=== PATIENT | male | born 1960 | race Caucasian/White ===

== ENCOUNTER 2022-01-17 07:50 | Day surgery (SDC) | payer OTHER ==
[2022-01-15 10:25] VITALS: BMI 50.9
--- NOTE | 2022-01-17 07:39 | P.GSHP ---
History of Present Illness H&P Date: 01/17/22 CHIEF COMPLAINT: Colon screen HISTORY OF PRESENT ILLNESS: The patient is a 61-year-old male who presents for colon screen. Lower endoscopy was offered for further evaluation and management. PAST MEDICAL HISTORY: Please see list. PAST SURGICAL HISTORY: Please see list. MEDICATIONS: Please see list. ALLERGIES: Please see list. SOCIAL HISTORY: No illicit drug use FAMILY HISTORY: No reports of Crohn disease or ulcerative colitis. REVIEW OF ORGAN SYSTEMS: CONSTITUTIONAL: No reports of fevers or chills. PHYSICAL EXAM: VITAL SIGNS: Stable GENERAL: Well-developed pleasant in no acute distress. HEENT: No scleral icterus. Extraocular movements grossly intact. Moist buccal mucosa. NECK: Supple without lymphadenopathy. CHEST: Unlabored respirations. Equal bilateral excursions. CARDIOVASCULAR: Regular rate and rhythm. Distal 2+ pulses. ABDOMEN: Soft, nontender, nondistended. MUSCULOSKELETAL: No clubbing, cyanosis, or edema. ASSESSMENT: 1. Colon screen. PLAN: 1. Recommend proceeding with a lower endoscopy Past Medical History Past Medical History: Atrial Fibrillation, Heart Failure, Hypertension, Osteoarthritis (OA), Sleep Apnea/CPAP/BIPAP Additional Past Medical History / Comment(s): uses CPAP, fatty liver, current umbilical hernia, edema lower extremities History of Any Multi-Drug Resistant Organisms: None Reported Past Surgical History: Cardiac Ablation, Heart Catheterization, Hernia Repair, Pacemaker Additional Past Surgical History / Comment(s): EP studies, hernia repair as a baby Past Anesthesia/Blood Transfusion Reactions: No Reported Reaction Type of Cardiac Device: Permanent Pacemaker Device Placement Date:: 1996 original, 3 yrs. ago upgraded Smoking Status: Former smoker Medications and Allergies Home Medications Medication Instructions Recorded Confirmed Type Diltiazem(Unknown Dose) 1 tab PO DAILY 01/15/22 01/15/22 History Furosemide [Lasix] 40 mg PO BID 01/15/22 01/15/22 History Losartan Potassium [Cozaar] 100 mg PO DAILY 01/15/22 01/15/22 History Potassium Chloride [Klor-Con M10] 10 meq PO Q2D 01/15/22 01/15/22 History Warfarin [Coumadin] 10 mg PO DAILY 01/15/22 01/15/22 History carvediloL [Coreg] 9.5 mg PO BID 01/15/22 01/15/22 History Allergies Allergy/AdvReac Type Severity Reaction Status Date / Time No Known Allergies Allergy Verified 01/15/22 09:58
[~2022-01-17 07:50] MED LIST: LACTATED RINGERS 1,000 ML IV SCH
[2022-01-17 08:17] VITALS: TEMP 96.9
[2022-01-17] MEDS ORDERED: LIDOCAINE 1% INJ 10MG/ML (20 ML MDV) ONE (09:06)
[2022-01-17] MEDS ORDERED: KETAMINE 10 MG/ML 20 ML VIAL ONE (09:06)
[2022-01-17] MEDS ORDERED: PROPOFOL 10 MG/ML 20 ML VIAL IV ONE (09:06)
--- NOTE | 2022-01-17 09:49 | P.PCN ---
Date of Procedure: 01/17/22 Description of Procedure: PREOPERATIVE DIAGNOSIS: Colonoscopy screening, first POSTOPERATIVE DIAGNOSIS: Tubular adenoma descending colon Tubular adenoma ascending colon Tubular adenoma transverse colon Sigmoid diverticulosis Tubular adenoma sigmoid colon Internal hemorrhoids, grade 2 OPERATION: Colonoscopy to the ileocecal valve and appendiceal orifice, cecum Colonoscopy with hot snare polypectomy Colonoscopy with cold forceps biopsy SURGEON: Leann Callahan MD. ANESTHESIA: MAC. INDICATIONS: The patient is an 61-year-old male who presents for his first colonoscopy screening. Benefits and risks were described and informed consent was obtained. DESCRIPTION OF PROCEDURE: The patient had undergone Sutab prep. The patient had been brought into the operating room and laid in the left lateral decubitus position. After adequate intravenous sedation, the rectum was examined with 2% lidocaine jelly. The prostate was unremarkable. External hemorrhoids were encountered. The rectal tone was within normal limits. No lesions were palpated in the rectal vault. An Olympus colonoscope was advanced until the cecum, ileocecal valve and appendiceal orifice were clearly viewed. The prep was fair. Sigmoid diverticulosis was encountered. Colonic polyps were found and removed. No evidence of focal colitis was found. Retroflexion of the scope demonstrated grade 2 internal hemorrhoids without active bleeding or inflammation. The colon was desufflated. The patient had tolerated the procedure well. Withdrawal time was over 6 minutes. FINDINGS: Aronchick preparation quality scale 2 (1-5) Internal hemorrhoids, grade 2 External hemorrhoids, grade 2 No arteriovenous malformations. Sigmoid diverticulosis Removal of 10 polyps: - Cold forceps biopsy at 20 cm from the anal verge x 6, 3 to 5 mm tubulovillous adenoma polyp. - Snare polypectomy 50 cm, 8 mm flat villous adenoma polyp, transverse colon - Snare polypectomy of descending colon, 6 mm flat villous adenoma polyp. - Snare polypectomy of transverse colon, 4 mm flat villous adenoma polyp. - Snare polypectomy of ascending colon, 8 mm flat villous adenoma polyp. No focal colitis. RECOMMENDATIONS: Repeat colonoscopy in one year, 2022 Plan - Discharge Summary Discharge Rx Participant: No New Discharge Prescriptions: Continue carvediloL [Coreg] 6.125 mg PO BID Furosemide [Lasix] 40 mg PO BID Warfarin [Coumadin] 10 mg PO DAILY Losartan Potassium [Cozaar] 100 mg PO DAILY Potassium Chloride [Klor-Con M10] 10 meq PO Q2D Diltiazem(Unknown Dose) 180 tab PO DAILY Discharge Medication List Diltiazem(Unknown Dose) 180 tab PO DAILY 01/15/22 [History] Furosemide [Lasix] 40 mg PO BID 01/15/22 [History] Losartan Potassium [Cozaar] 100 mg PO DAILY 01/15/22 [History] Potassium Chloride [Klor-Con M10] 10 meq PO Q2D 01/15/22 [History] Warfarin [Coumadin] 10 mg PO DAILY 01/15/22 [History] carvediloL [Coreg] 6.125 mg PO BID 01/15/22 [History] Follow up Appointment(s)/Referral(s): Leann Callahan MD [STAFF PHYSICIAN] - As Needed Patient Instructions/Handouts: Diverticulosis Diet (GEN), Diverticulosis (DC), Colorectal Polyps (GEN), Weight Management (DC) Activity/Diet/Wound Care/Special Instructions: Repeat colonoscopy in one year, 2022. START BLOOD THINNER FRIDAY Discharge Disposition: HOME SELF-CARE
[2022-01-17 10:08] VITALS: BP 171/93; PULSE 70; RESP 16
== END 2022-01-17 10:27 | disposition home or self-care (01) ==
LOC: ORWHC2ENDO 07:50
PROVIDERS: ATTEND Surgery Plastic and Reconstructive Surgery
DX: Z12.11 Encounter for screening for malignant neoplasm of colon (principal); D12.4 Benign neoplasm of descending colon; K63.5 Polyp of colon; K57.30 Diverticulosis of large intestine without perforation or abscess without bleeding; K64.1 Second degree hemorrhoids; I48.91 Unspecified atrial fibrillation; I11.0 Hypertensive heart disease with heart failure; I50.9 Heart failure, unspecified; M19.90 Unspecified osteoarthritis, unspecified site; K76.0 Fatty (change of) liver, not elsewhere classified; K42.9 Umbilical hernia without obstruction or gangrene; G47.33 Obstructive sleep apnea (adult) (pediatric); R60.0 Localized edema; Z95.0 Presence of cardiac pacemaker; Z98.890 Other specified postprocedural states; Z87.891 Personal history of nicotine dependence; Z79.01 Long term (current) use of anticoagulants; Z79.899 Other long term (current) drug therapy
CPT/HCPCS: 88305; 45380; 45385; J2001; J2704

== ENCOUNTER → 2022-10-14 | Outpatient (CLI) | payer OTHER ==
[2022-10-14 10:19] LABS: INR 2.4 (<1.2); Partial Thromboplastin Time 39.1 sec (22.0-30.0); Prothrombin Time 23.6 sec (9.0-12.0)
[2022-10-14 14:03] LABS: HCT 33.4 % (39.6-50.0); HGB 9.4 g/dL (13.0-17.0); MCH 20.2 pg (27.0-32.0); MCHC 28.1 g/dL (32.0-37.0); MCV 71.8 fL (80.0-97.0); Mean Platelet Volume 9.9 fL (9.5-12.2); NRBC Per 100 WBC 0 /100 WBCS (0.0-0.0); Platelet Count 264 X 10*3/uL (140-440); RBC 4.65 X 10*6/uL (4.40-5.60); RDW 20.2 % (11.5-14.5)
[2022-10-14 14:08] LABS: African American GFR (CKD) 112.5 (60.0-200.0); Albumin 4.2 g/dL (3.8-4.9); Albumin/Globulin Ratio 1.5 (1.60-3.17); Anion Gap 12.7 mmol/L (10.00-18.00); BUN/Creat Ratio 13.5 Ratio (12.00-20.00); Blood Urea Nitrogen 10.8 mg/dL (9.0-27.0); Calcium 9.1 mg/dL (8.7-10.3); Carbon Dioxide 27.3 mmol/L (20.0-27.5); Globulin 2.8 g/dL (1.6-3.3); Non-African American GFR(CKD) 97.1 (60.0-200.0); Potassium 3.7 mmol/L (3.5-5.5); Total Bilirubin 1.1 mg/dL (0.30-1.20)
[2022-10-14 14:21] LABS: Appearance,Urine Clear (Clear); Bilirubin,Urine Negative (Negative); Blood,Urine Negative (Negative); Color,Urine Yellow (Yellow); Ketones,Urine Trace mg/dL (Negative); Nitrite,Urine Positive (Negative); Specific Gravity,Urine 1.018 (1.001-1.030)
[2022-10-14 14:28] LABS: Bacteria,Urine 3+ /HPF (None Seen)
== END | disposition home or self-care (01) ==
LOC: LABPAT 09:42
PROVIDERS: ATTEND Orthopaedic Surgery
DX: Z01.812 Encounter for preprocedural laboratory examination (principal)
CPT/HCPCS: 80053; 81001; 85027; 85610; 85730; 87070

== ENCOUNTER 2024-01-19 15:48 | Inpatient (IN) | payer OTHER ==
--- NOTE | 2024-01-19 16:42 | ED ---
GI Bleed HPI - General Chief complaint: GI Bleed Stated complaint: GI Bleed, low hemoglobin Time Seen by Provider: 01/19/24 16:00 Source: patient, RN notes reviewed Mode of arrival: EMS Limitations: no limitations - History of Present Illness Initial comments: This is a 63-year-old male who presents to the emergency department as a transfer for a GI bleed. Patient presented to [facility] this morning for shortness of breath that has been worsening over the last 2 weeks. Reports a history of CHF and thought that was related to his symptoms. He has been getting short of breath with very little activity, such as walking to the bathroom. Also notes that he has been wearing a pulse ox and over the last couple weeks he has noticed his oxygen occasionally dropping to the mid 80s. He did note having both bright red blood in the stool and dark stool over the last couple of weeks and his blood work demonstrated a low hemoglobin. He had a rectal exam today which was positive for occult blood, and he was transferred to our facility for evaluation by a regrinder operator. States that his abdomen feels "tight" but is not particularly painful. He is on warfarin for atrial fibrillation. He is hoping to follow-up with cardiology at our facility. States that he has seen Dr. Cee, cardiology in the past when he was hospitalized at our facility, and would like to become reestablished with him or another one of his colleagues if possible. Lab Work from [place]: Hemoglobin: 6.9 In November hemoglobin was 8.74 Hematocrit: 24.1 Potassium 3.4 Creatinine: 1.55 eGFR: 48.69 INR: 3.25 BNP: 821 Troponin: 0.035 CXR: Cardiomegaly, pulmonary vascular congestion with bilateral pleural effusions - Related Data Home Medications Medication Instructions Recorded Confirmed Losartan Potassium [Cozaar] 100 mg PO DAILY 01/15/22 01/19/24 Warfarin [Coumadin] 5 mg PO DAILY 01/15/22 01/19/24 Omeprazole 20 mg PO DAILY PRN 12/02/22 01/19/24 Ferrous Sulfate [Iron (65 MG 325 mg PO DAILY 12/04/22 01/19/24 Elemental)] Bumetanide [BUMEX] 2 mg PO BID 01/19/24 01/19/24 Diclofenac Sodium [Voltaren] 75 mg PO BID PRN 01/19/24 01/19/24 Fluticasone Nasal [place] [Flonase 1 spray EA NOSTRIL DAILY PRN 01/19/24 01/19/24 Nasal [place]] HYDROcodone/APAP 10-325MG [[place] 1 tab PO Q6H PRN 01/19/24 01/19/24 10-325] Potassium Chloride ER [K-Dur 10] 10 meq PO DAILY 01/19/24 01/19/24 carvediloL [Coreg] 25 mg PO BID@0800,1800 01/19/24 01/19/24 metOLazone [Zaroxolyn] 5 mg PO DAILY 01/19/24 01/19/24 tadalafiL 5 mg PO DAILY 01/19/24 01/19/24 Previous Rx's Medication Instructions Recorded Apixaban [Eliquis] 5 mg PO BID #60 tab 01/20/24 Allergies Allergy/AdvReac Type Severity Reaction Status Date / Time No Known Allergies Allergy Verified 01/19/24 16:47 Review of Systems ROS Statement: Those systems with pertinent positive or pertinent negative responses have been documented in the HPI. ROS Other: All systems not noted in ROS Statement are negative. Past Medical History Past Medical History: Atrial Fibrillation, Heart Failure, GERD/Reflux, Hypertension, Osteoarthritis (OA), Sleep Apnea/CPAP/BIPAP Additional Past Medical History / Comment(s): uses CPAP, fatty liver, current umbilical hernia, edema lower extremities History of Any Multi-Drug Resistant Organisms: None Reported Past Surgical History: Cardiac Ablation, Heart Catheterization, Hernia Repair, Pacemaker Additional Past Surgical History / Comment(s): EP studies, hernia repair as a baby Past Anesthesia/Blood Transfusion Reactions: No Reported Reaction Type of Cardiac Device: Permanent Pacemaker Device Placement Date:: 1996 original, upgraded 2017 Past Psychological History: No Psychological Hx Reported Smoking Status: Current some day smoker, Former smoker Past Alcohol Use History: None Reported Additional Past Alcohol Use History / Comment(s): quit smoking 1991, smoked 6-8 yrs, 1/2-1ppd, 3-6 vodka mixed drinks daily, sometimes smokes maryjuana Past Drug Use History: Marijuana General Exam Limitations: no limitations General appearance: alert, in no apparent distress Head exam: Present: atraumatic, normocephalic, normal inspection Respiratory exam: Present: normal lung sounds bilaterally. Absent: respiratory distress, wheezes, rales, rhonchi, stridor Cardiovascular Exam: Present: regular rate, normal rhythm, normal heart sounds. Absent: systolic murmur, diastolic murmur, rubs, gallop, clicks GI/Abdominal exam: Present: soft, normal bowel sounds. Absent: distended, tenderness, guarding, rebound, rigid Neurological exam: Present: alert, oriented X3, CN II-XII intact Psychiatric exam: Present: normal affect, normal mood Skin exam: Present: warm, dry, intact, normal color. Absent: rash Course Vital Signs 01/19/24 01/19/24 01/19/24 16:02 17:05 17:40 Temperature 97.6 F Pulse Rate 81 80 67 Respiratory 18 18 16 Rate Blood Pressure 124/87 103/36 O2 Sat by Pulse 97 100 96 Oximetry 01/19/24 01/19/24 01/19/24 17:45 18:57 19:35 Temperature 97.7 F Pulse Rate 69 89 70 Respiratory 16 20 16 Rate Blood Pressure 94/41 104/50 104/52 O2 Sat by Pulse 98 98 99 Oximetry 01/19/24 01/19/24 01/19/24 19:45 20:05 21:15 Temperature 97.9 F 98.0 F Pulse Rate 69 97 83 Respiratory 18 18 18 Rate Blood Pressure 127/67 125/54 127/98 O2 Sat by Pulse 99 Oximetry 01/19/24 01/19/24 01/20/24 22:32 23:20 01:35 Temperature 97.7 F Pulse Rate 85 83 99 Respiratory 18 19 19 Rate Blood Pressure 136/61 127/69 151/83 O2 Sat by Pulse 96 97 94 L Oximetry 01/20/24 01/20/24 01/20/24 03:00 05:00 06:00 Temperature Pulse Rate 71 70 70 Respiratory 19 18 18 Rate Blood Pressure 151/73 162/82 127/74 O2 Sat by Pulse 95 96 94 L Oximetry 01/20/24 01/20/24 01/20/24 09:53 11:37 16:26 Temperature 97.6 F Pulse Rate 85 70 70 Respiratory 20 22 18 Rate Blood Pressure 143/79 136/89 133/69 O2 Sat by Pulse 94 L 95 95 Oximetry 01/20/24 21:04 Temperature Pulse Rate 80 Respiratory 18 Rate Blood Pressure 144/77 O2 Sat by Pulse 96 Oximetry Medical Decision Making - Medical Decision Making This is a 63 year old male who presents to the emergency department for a GI bleed: Was pt. sent in by a medical professional or institution? @ -Transfer from [facility] Did you speak to anyone other than the patient for history? @ -Records sent with the patient from [facility]: Lab Work from [place]: Hemoglobin: 6.9 In November hemoglobin was 8.74 Hematocrit: 24.1 Potassium 3.4 Creatinine: 1.55 eGFR: 48.69 INR: 3.25 BNP: 821 Troponin: 0.035 Occult Blood: Positive CXR: Cardiomegaly, pulmonary vascular congestion with bilateral pleural effusions Treatment: 1 unit PRBCs, potassium, magnesium. Coumadin held, no vitamin K given Did you review nursing and triage notes? @ -Yes, and I agree, it is accurate with regards to the patient's symptoms. Were old charts reviewed? @ -No Differential Diagnosis? @ -Differential GI Bleed: Esophageal varices, aortoenteric fistula, Jennie-Callahan, gastritis, peptic ulcer disease, diverticulosis, inflammatory bowel disease, hemorrhoids, fissure, colitis, malignancy, Meckels diverticulum, this is not meant to be an all- inclusive list. EKG interpreted by me (3pts min.)? @ -EKG interpreted by me demonstrating the following: Electronic ventricular pacemaker. Ventricular rate 83 BPM, QRS duration 145 ms, QTc 440 ms. X-rays interpreted by me (1pt min.)? @ -Chest x-ray obtained. My interpretation identifies bilateral pleural effusions. CT interpreted by me (1pt min.)? @ -Not obtained U/S interpreted by me (1pt. min.)? @ -Not obtained What testing was considered but not performed? (CT, X-rays, U/S, labs)? Why? @ -None What meds were considered but not given? Why? @ -None Did you discuss the management of the patient with other professionals? @ -Yes, Dr. Hurley, who accepts the patient for admission. Did you reconcile home meds? @ -Yes Was smoking cessation discussed for >3mins.? @ -No Was critical care preformed (if so, how long)? @ -No Were there social determinants of health that impacted care today? How? (Homelessness, low income, unemployed, alcoholism, drug addiction, transportation, low edu. Level, literacy, decrease access to med. care, group home, rehab)? @ -No Was there de-escalation of care discussed even if they declined? (Discuss DNR or withdrawal of care, Hospice)? @ -No What co-morbidities impacted this encounter? (DM, HTN, Smoking, COPD, CAD, Cancer, CVA, Hep., AIDS, mental health diagnosis, sleep apnea, morbid obesity)? @ -A-fib, CHF, HTN Was patient admitted / discharged? @ -Admitted. Patient transferred from [place] for GI bleed. Hemoglobin at their facility was 6.9. He was given 1 unit of packed red blood cells. Hemoglobin here is rechecked at 7.8. He was not given any vitamin K, however Coumadin was held. BNP was 821 and troponin is 0.035. Chest x-ray consistent with CHF exacerbation. BNP at our facility was 981 and troponin 0.043. Repeat chest x-ray here also consistent with CHF. He was given an additional 1 unit of packed red blood cells at our facility, followed by 40 units of IV Lasix af terwards. Patient admitted to medicine for GI bleed and CHF exacerbation. Consult placed for GI and cardiology. Undiagnosed new problem with uncertain prognosis? @ -None Drug Therapy requiring intensive monitoring for toxicity (Heparin, Nitro, Insulin, Cardizem)? @ -None Were any procedures done? @ -None Diagnosis/symptom? @ -GI bleed Acute, or Chronic, or Acute on Chronic? @ -Acute Uncomplicated (without systemic symptoms) or Complicated (systemic symptoms)? @ -Complicated Side effects of treatment? @ -None Exacerbation, Progression, or Severe Exacerbation] @ -Not applicable Poses a threat to life or bodily function? @ -Yes Diagnosis/symptom? @ -CHF exacerbation Acute, or Chronic, or Acute on Chronic? @ -Acute on chronic Uncomplicated (without systemic symptoms) or Complicated (systemic symptoms)? @ -Complicated Side effects of treatment? @ -None Exacerbation, Progression, or Severe Exacerbation] @ -Exacerbation Poses a threat to life or bodily function? @ -Yes This case was discussed in detail with the attending ED physician, Dr. Tiwari. Presentation, findings, and treatment plan discussed in detail as well. - Lab Data Result diagrams: 01/20/24 09:41 01/20/24 09:41 Lab Results 01/19/24 01/19/24 01/19/24 Range/Units 16:13 16:13 16:13 WBC 4.3 (3.8-10.6) k/uL RBC 2.72 L (4.30-5.90) m/uL Hgb 7.8 L (13.0-17.5) gm/dL Hct 25.1 L (39.0-53.0) % MCV 92.3 (80.0-100.0) fL MCH 28.5 (25.0-35.0) pg MCHC 30.9 L (31.0-37.0) g/dL RDW 16.7 H (11.5-15.5) % Plt Count 187 (150-450) k/uL MPV 8.2 Neutrophils % 71 % Lymphocytes % 14 % Monocytes % 7 % Eosinophils % 5 % Basophils % 0 % Neutrophils # 3.1 (1.3-7.7) k/uL Lymphocytes # 0.6 L (1.0-4.8) k/uL Monocytes # 0.3 (0-1.0) k/uL Eosinophils # 0.2 (0-0.7) k/uL Basophils # 0.0 (0-0.2) k/uL Hypochromasia Marked Poikilocytosis Slight Anisocytosis Slight PT 27.8 H (10.0-12.5) sec INR 2.8 H (<1.2) APTT 41.4 H (22.0-30.0) sec Sodium 140 (137-145) mmol/L Potassium 3.8 (3.5-5.1) mmol/L Chloride 102 (98-107) mmol/L Carbon Dioxide 32 H (22-30) mmol/L Anion Gap 6 mmol/L BUN 52 H (9-20) mg/dL Creatinine 1.46 H (0.66-1.25) mg/dL Est GFR (CKD-EPI)AfAm 59 (>60 ml/min/1.73 sqM) Est GFR (CKD-EPI)NonAf 51 (>60 ml/min/1.73 sqM) Glucose 110 H (74-99) mg/dL Plasma Lactic Acid Viral (0.7-2.0) mmol/L Calcium 8.3 L (8.4-10.2) mg/dL Magnesium 1.5 L (1.6-2.3) mg/dL Total Bilirubin 0.9 (0.2-1.3) mg/dL AST 41 (17-59) U/L ALT 26 (4-49) U/L Alkaline Phosphatase 79 (38-126) U/L Troponin I (0.000-0.034) ng/mL NT-Pro-B Natriuret Pep 981 pg/mL Total Protein 6.6 (6.3-8.2) g/dL Albumin 3.5 (3.5-5.0) g/dL Blood Type Blood Type Recheck Bld Type Recheck Status Antibody Screen Crossmatch Spec Expiration Date 01/19/24 01/19/24 01/19/24 Range/Units 16:13 16:13 17:05 WBC (3.8-10.6) k/uL RBC (4.30-5.90) m/uL Hgb (13.0-17.5) gm/dL Hct (39.0-53.0) % MCV (80.0-100.0) fL MCH (25.0-35.0) pg MCHC (31.0-37.0) g/dL RDW (11.5-15.5) % Plt Count (150-450) k/uL MPV Neutrophils % % Lymphocytes % % Monocytes % % Eosinophils % % Basophils % % Neutrophils # (1.3-7.7) k/uL Lymphocytes # (1.0-4.8) k/uL Monocytes # (0-1.0) k/uL Eosinophils # (0-0.7) k/uL Basophils # (0-0.2) k/uL Hypochromasia Poikilocytosis Anisocytosis PT (10.0-12.5) sec INR (<1.2) APTT (22.0-30.0) sec Sodium (137-145) mmol/L Potassium (3.5-5.1) mmol/L Chloride (98-107) mmol/L Carbon Dioxide (22-30) mmol/L Anion Gap mmol/L BUN (9-20) mg/dL Creatinine (0.66-1.25) mg/dL Est GFR (CKD-EPI)AfAm (>60 ml/min/1.73 sqM) Est GFR (CKD-EPI)NonAf (>60 ml/min/1.73 sqM) Glucose (74-99) mg/dL Plasma Lactic Acid Viral 1.2 (0.7-2.0) mmol/L Calcium (8.4-10.2) mg/dL Magnesium (1.6-2.3) mg/dL Total Bilirubin (0.2-1.3) mg/dL AST (17-59) U/L ALT (4-49) U/L Alkaline Phosphatase (38-126) U/L Troponin I 0.043 H* (0.000-0.034) ng/mL NT-Pro-B Natriuret Pep pg/mL Total Protein (6.3-8.2) g/dL Albumin (3.5-5.0) g/dL Blood Type B Positive Blood Type Recheck B Pos Bld Type Recheck Status No Antibody Screen NEGATIVE Crossmatch See Detail Spec Expiration Date 01/22/2024 - 8265 - Radiology Data Radiology results: report reviewed, image reviewed Disposition Clinical Impression: GI bleed, CHF exacerbation Disposition: ADMITTED IP TO THIS [facility] Time of Disposition: 17:30
[2024-01-19 16:43] LABS: Anisocytosis Slight; Basophils % (A) 0 %; Eosinophils # (A) 0.2 k/uL (0-0.7); Eosinophils % (A) 5 %; HCT 25.1 % (39.0-53.0); HGB 7.8 gm/dL (13.0-17.5); Hypochromasia Marked; Lymphocytes # (A) 0.6 k/uL (1.0-4.8); Lymphocytes % (A) 14 %; MCH 28.5 pg (25.0-35.0); MCHC 30.9 g/dL (31.0-37.0); MCV 92.3 fL (80.0-100.0); Mean Platelet Volume 8.2; Monocytes # (A) 0.3 k/uL (0-1.0); Monocytes % (A) 7 %; Neutrophils # (A) 3.1 k/uL (1.3-7.7); Neutrophils % (A) 71 %; Platelet Count 187 k/uL (150-450); Poikilocytosis Slight; RBC 2.72 m/uL (4.30-5.90); RDW 16.7 % (11.5-15.5); WBC 4.3 k/uL (3.8-10.6)
[2024-01-19 16:50] LABS: INR 2.8 (<1.2)
[2024-01-19 16:51] LABS: Partial Thromboplastin Time 41.4 sec (22.0-30.0); Prothrombin Time 27.8 sec (10.0-12.5)
[2024-01-19] MEDS ORDERED: PANTOPRAZOLE 40 MG TABLET PO PRN (17:12)
[2024-01-19] MEDS ORDERED: FLUTICASONE 50MCG/SPRAY NASAL 16GM EA NOSTRIL PRN (17:12)
[2024-01-19 17:15] LABS: ALT 26 U/L (4-49); AST 41 U/L (17-59); African American GFR (CKD) 59 (>60 ml/min/1.73 sqM); Albumin 3.5 g/dL (3.5-5.0); Alkaline Phosphatase 79 U/L (38-126); Anion Gap 6 mmol/L; Blood Urea Nitrogen 52 mg/dL (9-20); Calcium 8.3 mg/dL (8.4-10.2); Carbon Dioxide 32 mmol/L (22-30); Chloride 102 mmol/L (98-107); Glucose 110 mg/dL (74-99); Magnesium 1.5 mg/dL (1.6-2.3); Non-African American GFR(CKD) 51 (>60 ml/min/1.73 sqM); Potassium 3.8 mmol/L (3.5-5.1); Sodium 140 mmol/L (137-145); Total Bilirubin 0.9 mg/dL (0.2-1.3); Total Protein 6.6 g/dL (6.3-8.2)
[2024-01-19 17:24] LABS: NT-Pro-B-Type Natriuretic Pept 981 pg/mL
[2024-01-19] MEDS ORDERED: NALOXONE 0.4 MG/ML 1 ML VIAL IV PRN (17:50)
[2024-01-19] MEDS ORDERED: HYDROcodone/APAP 5-325MG 1 EACH TAB PO PRN (17:50)
[2024-01-19] MEDS ORDERED: MORPHINE SULFATE 4 MG/ML SYRINGE IV PRN (17:50)
[2024-01-19] MEDS ORDERED: ACETAMINOPHEN TAB 325 MG TAB PO PRN (17:50)
[2024-01-19] MEDS ORDERED: ONDANSETRON 4 MG/2 ML VIAL IVP PRN (17:50)
--- NOTE | 2024-01-19 18:16 | XR ---
EXAMINATION TYPE: XR chest 1V portable DATE OF EXAM: 01/19/2024 5:57 PM CLINICAL INDICATION:Male, 63 years old with history of GRADY; [facility] COMPARISON: Chest radiographs from 12/04/2022. TECHNIQUE: XR chest 1V portable Frontal view of the chest. FINDINGS: Lungs/Pleura: There is no evidence of pleural effusion, focal consolidation, or pneumothorax. Pulmonary vascularity: Pulmonary vascular congestion. Heart/mediastinum: Cardiomediastinal silhouette is enlarged and stable. Three lead cardiac conduction device overlying the right hemithorax with lead tips projecting over the right ventricle, right atri um and coronary sinus. Musculoskeletal: No acute osseous pathology. Other findings: None Lines/Tubes: IMPRESSION: Low lung volumes with a generalized hazy appearance which could represent atelectasis versus pulmonar y edema correlate with serum BNP.
[2024-01-19] MEDS: carvediloL 12.5 MG TAB PO SCH (19:02)
[2024-01-19] MEDS: BUMETANIDE 1 MG TAB PO SCH (21:16)
[2024-01-19] MEDS: HYDROcodone/APAP 10-325MG 1 EACH TAB PO PRN (22:33)
[2024-01-19] MEDS: FUROSEMIDE 10 MG/ML 4 ML VIAL IV STA (23:59)
[2024-01-20] MEDS ORDERED: Magnesium Replacement Protocol 1 EACH MISC MISCELLANE PRN (08:26)
--- NOTE | 2024-01-20 08:26 | P.HPIM ---
History of Present Illness this is a pleasant 63 years old male with past medical history of multiple medical problems including atrial fibrillation on Coumadin, chronic heart failure, GERD, hypertension, osteoarthritis, sleep apnea Presents to The hospital for blood in his stool for about 2-3 weeks, his been having once a week black stool in 2 weeks ago he had fresh blood in the stool but always stopped Yesterday he started having more symptoms of fatigue and dyspnea he went to the [facility] where he was found to have low hemoglobin 6.9 Patient was transferred to this facility while he was getting the blood transfusion, hemoglobin is improved after that 7.8 Currently he is sitting up in chair, fully awake and oriented, he denies chest pain or dyspnea, he denies abdominal pain vomiting or diarrhea. No urinary symptoms. He uses a walker for his hip problem This extrusion former in severity now and he wanted to be transferred to [address] [place] [address] He denies smoking alcohol or illicit drugs He is hemodynamically stable A CBC is unremarkable other than low hemoglobin as above INR is 2.8 secondary to Coumadin Liver enzymes is unremarkable Magnesium 1.5 troponin are elevated 0.043, BNP is 981 which is not significantly elevated Creatinine 1.4 is mildly elevated. Patient states he is been taking Bumex and metolazone. On admission his Coumadin was held. We got to hold his metolazone because of his high creatinine Review of Systems Review of systems CONSTITUTIONAL: No fever, no malaise, no fatigue. HEENT: No recent visual problems or hearing problems. Denied any sore throat. CARDIOVASCULAR: No orthopnea, PND, no palpitations, no syncope. PULMONARY: No shortness of breath, no cough, no hemoptysis. GASTROINTESTINAL: No diarrhea, no nausea, no vomiting, no abdominal pain. Normoactive bowel sounds. NEUROLOGICAL: No headaches, no weakness, no numbness. HEMATOLOGICAL: Denies any bleeding or petechiae. GENITOURINARY: Denies any burning micturition, frequency, or urgency. MUSCULOSKELETAL/RHEUMATOLOGICAL: Denies any joint pain, swelling, or any muscle pain. ENDOCRINE: Denies any polyuria or polydipsia. Past Medical History Past Medical History: Atrial Fibrillation, Heart Failure, GERD/Reflux, Hypertension, Osteoarthritis (OA), Sleep Apnea/CPAP/BIPAP Additional Past Medical History / Comment(s): uses CPAP, fatty liver, current umbilical hernia, edema lower extremities History of Any Multi-Drug Resistant Organisms: None Reported Past Surgical History: Cardiac Ablation, Heart Catheterization, Hernia Repair, Pacemaker Additional Past Surgical History / Comment(s): EP studies, hernia repair as a baby Past Anesthesia/Blood Transfusion Reactions: No Reported Reaction Type of Cardiac Device: Permanent Pacemaker Device Placement Date:: 1996 original, upgraded 2016 Past Psychological History: No Psychological Hx Reported Smoking Status: Current some day smoker, Former smoker Past Alcohol Use History: None Reported Additional Past Alcohol Use History / Comment(s): quit smoking 1991, smoked 6-8 yrs, 1/2-1ppd, 3-6 vodka mixed drinks daily, sometimes smokes [employer] Past Drug Use History: Marijuana Medications and Allergies Home Medications Medication Instructions Recorded Confirmed Type Losartan Potassium [Cozaar] 100 mg PO DAILY 01/15/22 01/19/24 History Warfarin [Coumadin] 5 mg PO DAILY 01/15/22 01/19/24 History Omeprazole 20 mg PO DAILY PRN 12/02/22 01/19/24 History Ferrous Sulfate [Iron (65 MG 325 mg PO DAILY 12/04/22 01/19/24 History Elemental)] Bumetanide [BUMEX] 2 mg PO BID 01/19/24 01/19/24 History Diclofenac Sodium [Voltaren] 75 mg PO BID PRN 01/19/24 01/19/24 History Fluticasone Nasal [place] [Flonase 1 spray EA NOSTRIL DAILY PRN 01/19/24 01/19/24 History Nasal [place]] HYDROcodone/APAP 10-325MG [[place] 1 tab PO Q6H PRN 01/19/24 01/19/24 History 10-325] Potassium Chloride ER [K-Dur 10] 10 meq PO DAILY 01/19/24 01/19/24 History carvediloL [Coreg] 25 mg PO BID@0800,1800 01/19/24 01/19/24 History metOLazone [Zaroxolyn] 5 mg PO DAILY 01/19/24 01/19/24 History tadalafiL 5 mg PO DAILY 01/19/24 01/19/24 History Allergies Allergy/AdvReac Type Severity Reaction Status Date / Time No Known Allergies Allergy Verified 01/19/24 16:47 Physical Exam Vitals: Vital Signs Temp Pulse Resp BP Pulse Ox 04/02/24 06:00 70 18 127/74 94 L 01/20/24 05:00 70 18 162/82 96 01/20/24 03:00 71 19 151/73 95 01/20/24 01:35 99 19 151/83 94 L 01/19/24 23:20 97.7 F 83 19 127/69 97 01/19/24 22:32 85 18 136/61 96 01/19/24 21:15 83 18 127/98 99 01/19/24 20:05 98.0 F 97 18 125/54 01/19/24 19:45 97.9 F 69 18 127/67 01/19/24 19:35 97.7 F 70 16 104/52 99 01/19/24 18:57 89 20 104/50 98 01/19/24 17:45 69 16 94/41 98 01/19/24 17:40 67 16 103/36 96 01/19/24 17:05 80 18 100 01/19/24 16:02 97.6 F 81 18 124/87 97 Intake and Output 01/19/24 01/20/24 01/20/24 22:59 06:59 14:59 Intake Total 0 310 Output Total 1425 1750 Balance 0 -1115 -1750 Intake: Blood Product 0 310 Rc As-1 Unit 0 310 [id number] Output: Urine 1425 1750 Stool 0 Other: Weight 175.54 kg Results CBC & Chem 7: 01/19/24 16:13 01/19/24 16:13 Labs: Abnormal Lab Results - Last 24 Hours (Table) 01/19/24 01/19/24 01/19/24 Range/Units 16:13 16:13 16:13 RBC 2.72 L (4.30-5.90) m/uL Hgb 7.8 L (13.0-17.5) gm/dL Hct 25.1 L (39.0-53.0) % MCHC 30.9 L (31.0-37.0) g/dL RDW 16.7 H (11.5-15.5) % Lymphocytes # 0.6 L (1.0-4.8) k/uL PT 27.8 H (10.0-12.5) sec INR 2.8 H (<1.2) APTT 41.4 H (22.0-30.0) sec Carbon Dioxide 32 H (22-30) mmol/L BUN 52 H (9-20) mg/dL Creatinine 1.46 H (0.66-1.25) mg/dL Glucose 110 H (74-99) mg/dL Calcium 8.3 L (8.4-10.2) mg/dL Magnesium 1.5 L (1.6-2.3) mg/dL Troponin I (0.000-0.034) ng/mL Crossmatch 01/19/24 01/19/24 01/19/24 Range/Units 16:13 17:05 18:33 RBC (4.30-5.90) m/uL Hgb (13.0-17.5) gm/dL Hct (39.0-53.0) % MCHC (31.0-37.0) g/dL RDW (11.5-15.5) % Lymphocytes # (1.0-4.8) k/uL PT (10.0-12.5) sec INR (<1.2) APTT (22.0-30.0) sec Carbon Dioxide (22-30) mmol/L BUN (9-20) mg/dL Creatinine (0.66-1.25) mg/dL Glucose (74-99) mg/dL Calcium (8.4-10.2) mg/dL Magnesium (1.6-2.3) mg/dL Troponin I 0.043 H* 0.040 H* (0.000-0.034) ng/mL Crossmatch See Detail 01/19/24 Range/Units 23:30 RBC (4.30-5.90) m/uL Hgb (13.0-17.5) gm/dL Hct (39.0-53.0) % MCHC (31.0-37.0) g/dL RDW (11.5-15.5) % Lymphocytes # (1.0-4.8) k/uL PT (10.0-12.5) sec INR (<1.2) APTT (22.0-30.0) sec Carbon Dioxide (22-30) mmol/L BUN (9-20) mg/dL Creatinine (0.66-1.25) mg/dL Glucose (74-99) mg/dL Calcium (8.4-10.2) mg/dL Magnesium (1.6-2.3) mg/dL Troponin I 0.042 H* (0.000-0.034) ng/mL Crossmatch Assessment and Plan Assessment: acute GI bleed Acute blood loss anemia Acute kidney injury Coagulopathy secondary to Coumadin Elevated troponin most likely demand/supply mismatch Chronic atrial fibrillation on Coumadin, heart rate is controlled Chronic heart failure, unknown ejection fraction History of GERD Hypertension Osteoarthritis Sleep apnea Obesity with BMI of 54 Plan: Hold Coumadin Monitor hemoglobin and transfuse for hemoglobin less than 7 Continue with Protonix GI consult Cardiology evaluation for elevated troponin and other cardiac problems Labs and medication were reviewed.. Continue same treatment. Continue with symptomatic treatment. Resume home medication. Monitor labs and vitals. DVT and GI prophylaxis. Further recommendations as per clinical course of the patient DVT prophylaxis: no anticoagulation for risk of bleed GI Prophylaxis: Pepcid Prognosis is guarded
[2024-01-20] MEDS ORDERED: metOLazone 5 MG TAB PO SCH (09:00)
[2024-01-20] MEDS ORDERED: PANTOPRAZOLE 40 MG/10 ML VIAL IV SCH (09:00)
--- NOTE | 2024-01-20 09:44 | P.CRDCN ---
History of Present Illness History of present illness: HISTORY OF PRESENT ILLNESS: This is a 63-year-old male with a past medical history significant for anemia, hypertension, congestive heart failure, pacemaker implantation, AV deonte ablatio n, and atrial fibrillation. Patient follows with a senior electronics engineer in [place]. We have been asked to see the patient in consultation for congestive heart failure. Patient examined at the bedside in the emergency room. Patient initially presented to [facility] with a chief complaint of shortness of breath and feeling unwell. Patient was found to be anemic with a hemoglobin of 6.9. He did receive RBC transfusion. Most recent hemoglobin performed here was 7.8. He does state that he takes iron supplements on an outpatient basis as needed. The patient is prescribed warfarin on an outpatient basis secondary to history of atrial fibrillation. DIAGNOSTICS: - EKG not available at the time of this dictation - Chest xray low lung volumes with generalized hazy appearance which could represent atelectasis versus pulmonary edema. - Laboratory data: WBC 4.3. Hemoglobin 7.8. Platelet count 187. INR 2.8. Sodium 140. Potassium 3.8. BUN 52. Creatinine 1.46. Magnesium 1.5. proBNP 981. Troponin 0.043. 0.0410. 0.042. - Current home cardiac medications include Bumex 2 mg twice a day, carvedilol 25 mg twice a day, losartan 100 mg daily, Zaroxolyn 5 mg daily, and Coumadin 5 mg daily. - Most recent echocardiogram obtained in November 2022 reveals ejection fraction 50 to 55%, mild to moderate MR, mild TR. - Cardiac catheterization history: Patient believes he last had a cardiac c atheterization in 2016 and states he did not require stenting. Exact details unavailable at this time REVIEW OF SYSTEMS: At the time of my exam: CONSTITUTIONAL: Denies fever or chills. HEENT: Denies blurred vision, vision changes, or eye pain. Denies hemoptysis CARDIOVASCULAR: Denies chest pain. Denies orthopnea. Denies PND. Denies palpitations RESPIRATORY: Denies shortness of breath. GASTROINTESTINAL: Denies abdominal pain. Denies nausea or vomiting. HEMATOLOGIC: Denies bleeding disorders. GENITOURINARY: Denies any blood in urine. SKIN: Denies pruitis. Denies rash. PHYSICAL EXAM: VITAL SIGNS: Reviewed. GENERAL: Well-developed in no acute distress. HEENT: Head is normocephalic. Pupils are equal, round. Sclerae anicteric. Mucous membranes of the mouth are moist. Neck supple. No JVD or thyromegaly LUNGS: Respirations even and unlabored. Lungs essentially clear to auscultation bilaterally. HEART: Irregular rate and rhythm. S1 and S2 heard. ABDOMEN: Soft. Nondistended. Nontender. EXTREMITIES: Normal range of motion. No clubbing or cyanosis. Peripheral pulses intact. Trace bilateral lower extremity edema NEUROLOGIC: Awake and alert. Oriented x 3. ASSESSMENT: Acute on chronic anemia Acute kidney injury Elevated troponins, flat, type II MA Chronic heart failure with preserved EF, currently euvolemic History of permanent pacemaker implantation History of AV deonte ablation Permanent atrial fibrillation on warfarin Hypomagnesemia PLAN: An acute coronary event has been ruled out Patient is not fluid overloaded on examination. No need for IV diuretics. Hold oral diuretics today secondary to HOLA (patient was taking 2 mg Bumex twice a day). Repeat kidney function in a.m. and resume if HOLA has resolved Replace magnesium Coumadin remains on hold Patient does report having difficulty with his INR on an outpatient basis. We will check coverage for Eliquis in the event that his anticoagulation is able to be resumed Consider Watchman device in the future if patient continues to have issues with anemia on anticoagulation GI has been consulted. Await evaluation. Patient requesting to follow-up with Dr. Cee in [place] postdischarge Further recommendations pending patient course Nurse practitioner note has been reviewed by physician. Signing provider agrees with the documented findings, assessment, and plan of care documented by REPAIR OPERATOR as a scribe. Past Medical History Past Medical History: Atrial Fibrillation, Heart Failure, GERD/Reflux, Hypertension, Osteoarthritis (OA), Sleep Apnea/CPAP/BIPAP Additional Past Medical History / Comment(s): uses CPAP, fatty liver, current umbilical hernia, edema lower extremities History of Any Multi-Drug Resistant Organisms: None Reported Past Surgical History: Cardiac Ablation, Heart Catheterization, Hernia Repair, Pacemaker Additional Past Surgical History / Comment(s): EP studies, hernia repair as a baby Past Anesthesia/Blood Transfusion Reactions: No Reported Reaction Type of Cardiac Device: Permanent Pacemaker Device Placement Date:: 1996 original, upgraded 2017 Past Psychological History: No Psychological Hx Reported Smoking Status: Current some day smoker, Former smoker Past Alcohol Use History: None Reported Additional Past Alcohol Use History / Comment(s): quit smoking 1991, smoked 6-8 yrs, 1/2-1ppd, 3-6 vodka mixed drinks daily, sometimes smokes sabrina Past Drug Use History: Marijuana Medications and Allergies Home Medications Medication Instructions Recorded Confirmed Type Losartan Potassium [Cozaar] 100 mg PO DAILY 01/15/22 01/19/24 History Warfarin [Coumadin] 5 mg PO DAILY 01/15/22 01/19/24 History Omeprazole 20 mg PO DAILY PRN 12/02/22 01/19/24 History Ferrous Sulfate [Iron (65 MG 325 mg PO DAILY 12/04/22 01/19/24 History Elemental)] Bumetanide [BUMEX] 2 mg PO BID 01/19/24 01/19/24 History Diclofenac Sodium [Voltaren] 75 mg PO BID PRN 01/19/24 01/19/24 History Fluticasone Nasal [place] [Flonase 1 spray EA NOSTRIL DAILY PRN 01/19/24 01/19/24 History Nasal [place]] HYDROcodone/APAP 10-325MG [[place] 1 tab PO Q6H PRN 01/19/24 01/19/24 History 10-325] Potassium Chloride ER [K-Dur 10] 10 meq PO DAILY 01/19/24 01/19/24 History carvediloL [Coreg] 25 mg PO BID@0800,1800 01/19/24 01/19/24 History metOLazone [Zaroxolyn] 5 mg PO DAILY 01/19/24 01/19/24 History tadalafiL 5 mg PO DAILY 01/19/24 01/19/24 History Allergies Allergy/AdvReac Type Severity Reaction Status Date / Time No Known Allergies Allergy Verified 01/19/24 16:47 Physical Exam Vitals: Vital Signs Temp Pulse Resp BP Pulse Ox 01/20/24 06:00 70 18 127/74 94 L 01/20/24 05:00 70 18 162/82 96 01/20/24 03:00 71 19 151/73 95 01/20/24 01:35 99 19 151/83 94 L 01/19/24 23:20 97.7 F 83 19 127/69 97 01/19/24 22:32 85 18 136/61 96 01/19/24 21:15 83 18 127/98 99 04/01/24 20:05 98.0 F 97 18 125/54 01/19/24 19:45 97.9 F 69 18 127/67 01/19/24 19:35 97.7 F 70 16 104/52 99 01/19/24 18:57 89 20 104/50 98 01/19/24 17:45 69 16 94/41 98 01/19/24 17:40 67 16 103/36 96 01/19/24 17:05 80 18 100 01/19/24 16:02 97.6 F 81 18 124/87 97 Intake and Output 01/19/24 01/20/24 01/20/24 22:59 06:59 14:59 Intake Total 0 310 Output Total 1425 1750 Balance 0 -1115 -1750 Intake: Blood Product 0 310 Rc As-1 Unit 0 310 [id number] Output: Urine 1425 1750 Stool 0 Other: Weight 175.54 kg Results 01/19/24 16:13 01/19/24 16:13 Cardiac Enzymes 01/19/24 01/19/24 01/19/24 Range/Units 16:13 16:13 18:33 AST 41 (17-59) U/L Troponin I 0.043 H* 0.040 H* (0.000-0.034) ng/mL 01/19/24 Range/Units 23:30 AST (17-59) U/L Troponin I 0.042 H* (0.000-0.034) ng/mL Coagulation 01/19/24 Range/Units 16:13 PT 27.8 H (10.0-12.5) sec APTT 41.4 H (22.0-30.0) sec CBC 01/19/24 Range/Units 16:13 WBC 4.3 (3.8-10.6) k/uL RBC 2.72 L (4.30-5.90) m/uL Hgb 7.8 L (13.0-17.5) gm/dL Hct 25.1 L (39.0-53.0) % Plt Count 187 (150-450) k/uL Comprehensive Metabolic Panel 01/19/24 Range/Units 16:13 Sodium 140 (137-145) mmol/L Potassium 3.8 (3.5-5.1) mmol/L Chloride 102 (98-107) mmol/L Carbon Dioxide 32 H (22-30) mmol/L BUN 52 H (9-20) mg/dL Creatinine 1.46 H (0.66-1.25) mg/dL Glucose 110 H (74-99) mg/dL Calcium 8.3 L (8.4-10.2) mg/dL AST 41 (17-59) U/L ALT 26 (4-49) U/L Alkaline Phosphatase 79 (38-126) U/L Total Protein 6.6 (6.3-8.2) g/dL Albumin 3.5 (3.5-5.0) g/dL Current Medications Generic Name Dose Route Start Last Admin Trade Name Freq PRN Reason Stop Dose Admin Acetaminophen 650 mg 01/19/24 17:50 Acetaminophen Tab 325 Mg Tab PO Q6HR PRN Mild Pain or Fever > 100.5 Hydrocodone Bitart/Acetaminophen 1 each 01/19/24 17:12 01/20/24 05:37 Hydrocodone/Apap 10-325mg 1 Each Tab PO 1 each Q6H PRN Administration Pain Hydrocodone Bitart/Acetaminophen 1 each 01/19/24 17:50 Hydrocodone/Apap 5-325mg 1 Each Tab PO Q4HR PRN Moderate Pain (Scale 4 to 6) Bumetanide 2 mg 01/19/24 21:00 01/19/24 21:16 Bumetanide 1 Mg Tab PO 2 mg BID JAMAL Administration Carvedilol 25 mg 01/19/24 18:00 01/19/24 19:02 Carvedilol 12.5 Mg Tab PO Not Given BID@0800,1800 [facility] Ferrous Sulfate 325 mg 01/20/24 09:00 Ferrous Sulfate 325 Mg Tab PO DAILY [facility] Fluticasone Propionate 1 spray 01/19/24 17:12 Fluticasone 50mcg/[place] Nasal 16gm EA NOSTRIL DAILY PRN Allergy Symptoms Losartan Potassium 100 mg 01/20/24 09:00 Losartan 50 Mg Tab PO DAILY [facility] Morphine Sulfate 4 mg 01/19/24 17:50 Morphine Sulfate 4 Mg/Ml Syringe IV Q4HR PRN Severe Pain (Scale 7 to 10) Naloxone HCl 0.2 mg 01/19/24 17:50 Naloxone 0.4 Mg/Ml 1 Ml Vial IV Q2M PRN Opioid Reversal Non-Formulary Medication 5 mg 01/20/24 09:00 Tadalafil [Tadalafil] PO DAILY JAMAL Ondansetron HCl 4 mg 01/19/24 17:50 Ondansetron 4 Mg/2 Ml Vial IVP Q8HR PRN Nausea And Vomiting Pantoprazole Sodium 40 mg 01/20/24 09:00 Pantoprazole 40 Mg Tablet PO AC-[id number] JAMAL Potassium Chloride 10 meq 01/20/24 09:00 Potassium Chloride Er 10 Meq Tab.Er.Prt PO DAILY JAMAL Intake and Output 01/19/24 01/20/24 01/20/24 22:59 06:59 14:59 Intake Total 0 310 Output Total 1425 1750 Balance 0 -1115 -1750 Intake: Blood Product 0 310 Rc As-1 Unit 0 310 [id number] Output: Urine 1425 1750 Stool 0 Other: Weight 175.54 kg 01/19/24 16:13 01/19/24 16:13
[2024-01-20] MEDS: PANTOPRAZOLE 40 MG TABLET PO SCH (09:56)
[2024-01-20] MEDS: FERROUS SULFATE 325 MG TAB PO SCH (09:56)
[2024-01-20] MEDS: LOSARTAN 50 MG TAB PO SCH (09:56)
[2024-01-20] MEDS: POTASSIUM CHLORIDE ER 10 MEQ TAB.ER.PRT PO SCH (09:56)
[2024-01-20] MEDS: NON FORMULARY DRUG (Tadalafil [Tadalafil] 5 MG Tablet) PO SCH (09:56)
[2024-01-20] MEDS: MAGNESIUM SULFATE-D5W PMX 1 GM in DEXTROSE/WATER 1 100ML.BAG IVPB SCH (10:05)
[2024-01-20 10:06] LABS: Anisocytosis Slight; Basophils % (A) 1 %; Eosinophils # (A) 0.3 k/uL (0-0.7); Eosinophils % (A) 5 %; HGB 8.8 gm/dL (13.0-17.5); Hypochromasia Marked; Lymphocytes # (A) 0.6 k/uL (1.0-4.8); Lymphocytes % (A) 11 %; MCH 28.9 pg (25.0-35.0); MCHC 31.2 g/dL (31.0-37.0); MCV 92.5 fL (80.0-100.0); Monocytes # (A) 0.3 k/uL (0-1.0); Monocytes % (A) 6 %; Neutrophils # (A) 3.7 k/uL (1.3-7.7); Neutrophils % (A) 75 %; Platelet Count 189 k/uL (150-450); Poikilocytosis Slight; RBC 3.03 m/uL (4.30-5.90); RDW 16.4 % (11.5-15.5)
[2024-01-20 10:29] LABS: African American GFR (CKD) 73 (>60 ml/min/1.73 sqM); Anion Gap 12 mmol/L; Blood Urea Nitrogen 52 mg/dL (9-20); Calcium 8.5 mg/dL (8.4-10.2); Carbon Dioxide 30 mmol/L (22-30); Chloride 97 mmol/L (98-107); Glucose 119 mg/dL (74-99); Magnesium 1.3 mg/dL (1.6-2.3); Non-African American GFR(CKD) 63 (>60 ml/min/1.73 sqM); Potassium 3.4 mmol/L (3.5-5.1); Sodium 139 mmol/L (137-145)
[2024-01-20 10:36] LABS: INR 2.3 (<1.2); Prothrombin Time 23.2 sec (10.0-12.5)
--- NOTE | 2024-01-20 12:09 | P.CONS ---
History of Present Illness - Reason for Consult Consult date: 01/20/24 GI bleed Requesting physician: Khushi Patel - Chief Complaint GI bleed - History of Present Illness This is a pleasant 63-year-old male who was at [facility] and was transferred to [facility] for GI bleed. Patient had gone to the emergency department for shortness of breath that have been worsening over the last couple of weeks. He has a past medical history including congestive heart failure, atrial fibrillation on Coumadin, hypertension, sleep apnea, GERD and osteoarthritis. Patient states he has had a history of anemia in the past and workup with upper and lower endoscopy back in November 2022 for questionable GI bleed. States over the last couple weeks he has had some bright red blood and some dark stools. States last week 1 to 2 days he again had some bright red blood noted and dark with wiping. He was noted to be anemic and was transferred here for further evaluation. Last dose of Coumadin was yesterday INR was 2.8. Last upper and lower endoscopy done 12/05/[address] Cee. Upper endoscopy revealed 1 cm duodenal polyp status post biopsy and antral gastritis. Colonoscopy revealed 2 broad-based hepatic flexure polyps status post polypectomy and scattered sigmoid diverticula. Patient states last bowel mov ement was yesterday morning he states there was no blood. Labs WBC 5.0 hemoglobin 8.8 hematocrit 28 platelet count 189,000 INR 2.3 sodium 139 potassium 3.4 BUN 52 creatinine 1.24 Review of Systems REVIEW OF SYSTEMS: CARDIOPULMONARY: No chest pain or shortness of breath. Dyspnea on exertion. Gastrointestinal: Denies any epigastric pain or abdominal pain. No nausea or vomiting. No hematemesis, coffee-ground emesis. Reports noted bright red bleeding and black stool intermittently over the last couple of weeks. GENITOURINARY: No dysuria or hematuria. MUSCULOSKELETAL: Reports normal range of motion. SKIN: No rashes. No jaundice. ENDOCRINE: No chills, fevers. No excessive weight gain or loss. No polydipsia or polyuria. PSYCHIATRIC: Unremarkable. NEUROLOGY: No change in mental status. Denies dizziness, headache. ENT: Vision unremarkable. CONSTITUTIONAL: No recent weight loss. No fever, chills, night sweats. Past Medical History Past Medical History: Atrial Fibrillation, Heart Failure, GERD/Reflux, Hypertension, Osteoarthritis (OA), Sleep Apnea/CPAP/BIPAP Additional Past Medical History / Comment(s): uses CPAP, fatty liver, current umbilical hernia, edema lower extremities History of Any Multi-Drug Resistant Organisms: None Reported Past Surgical History: Cardiac Ablation, Heart Catheterization, Hernia Repair, Pacemaker Additional Past Surgical History / Comment(s): EP studies, hernia repair as a baby Past Anesthesia/Blood Transfusion Reactions: No Reported Reaction Type of Cardiac Device: Permanent Pacemaker Device Placement Date:: 1996 original, upgraded 2016 Past Psychological History: No Psychological Hx Reported Smoking Status: Current some day smoker, Former smoker Past Alcohol Use History: None Reported Additional Past Alcohol Use History / Comment(s): quit smoking 1991, smoked 6-8 yrs, 1/2-1ppd, 3-6 vodka mixed drinks daily, sometimes smokes [employer] Past Drug Use History: Marijuana Medications and Allergies Home Medications Medication Instructions Recorded Confirmed Type Losartan Potassium [Cozaar] 100 mg PO DAILY 01/15/22 01/19/24 History Warfarin [Coumadin] 5 mg PO DAILY 01/15/22 01/19/24 History Omeprazole 20 mg PO DAILY PRN 12/02/22 01/19/24 History Ferrous Sulfate [Iron (65 MG 325 mg PO DAILY 12/04/22 01/19/24 History Elemental)] Bumetanide [BUMEX] 2 mg PO BID 01/19/24 01/19/24 History Diclofenac Sodium [Voltaren] 75 mg PO BID PRN 01/19/24 01/19/24 History Fluticasone Nasal [place] [Flonase 1 spray EA NOSTRIL DAILY PRN 01/19/24 01/19/24 History Nasal [place]] HYDROcodone/APAP 10-325MG [[place] 1 tab PO Q6H PRN 01/19/24 01/19/24 History 10-325] Potassium Chloride ER [K-Dur 10] 10 meq PO DAILY 01/19/24 01/19/24 History carvediloL [Coreg] 25 mg PO BID@0800,1800 01/19/24 01/19/24 History metOLazone [Zaroxolyn] 5 mg PO DAILY 01/19/24 01/19/24 History tadalafiL 5 mg PO DAILY 01/19/24 01/19/24 History Apixaban [Eliquis] 5 mg PO BID #60 tab 01/20/24 Rx Allergies Allergy/AdvReac Type Severity Reaction Status Date / Time No Known Allergies Allergy Verified 01/19/24 16:47 Physical Exam Vitals: Vital Signs Temp Pulse Resp BP Pulse Ox 01/20/24 06:00 70 18 127/74 94 L 01/20/24 05:00 70 18 162/82 96 01/20/24 03:00 71 19 151/73 95 01/20/24 01:35 99 19 151/83 94 L 01/19/24 23:20 97.7 F 83 19 127/69 97 01/19/24 22:32 85 18 136/61 96 01/19/24 21:15 83 18 127/98 99 01/19/24 20:05 98.0 F 97 18 125/54 01/19/24 19:45 97.9 F 69 18 127/67 01/19/24 19:35 97.7 F 70 16 104/52 99 01/19/24 18:57 89 20 104/50 98 01/19/24 17:45 69 16 94/41 98 01/19/24 17:40 67 16 103/36 96 01/19/24 17:05 80 18 100 01/19/24 16:02 97.6 F 81 18 124/87 97 Intake and Output 01/19/24 01/20/24 01/20/24 22:59 06:59 14:59 Intake Total 0 310 Output Total 1425 1750 Balance 0 -1115 -1750 Intake: Blood Product 0 310 Rc As-1 Unit 0 310 [id number] Output: Urine 1425 1750 Stool 0 Other: Weight 175.54 kg General appearance: The patient is alert, oriented, appears in no acute distress. Morbidly obese. HET: Head is normocephalic and atraumatic. Conjunctiva pink. Sclera anicteric. Neck: Supple without lymphadenopathy. Trachea midline. Heart: Regular. Lungs: Equal expansion, normal respiratory effort. Abdomen: Soft, nontender, nondistended with bowel sounds. No guarding or rigidity. Skin: No rashes. No jaundice. Extremities: Normal skin color and turgor. No pedal edema. Neurological: No focal deficits. Alert and oriented x3. Results CBC & Chem 7: 01/20/24 09:41 01/20/24 09:41 Labs: Abnormal Lab Results - Last 24 Hours (Table) 01/19/24 01/19/24 01/19/24 Range/Units 16:13 16:13 16:13 RBC 2.72 L (4.30-5.90) m/uL Hgb 7.8 L (13.0-17.5) gm/dL Hct 25.1 L (39.0-53.0) % MCHC 30.9 L (31.0-37.0) g/dL RDW 16.7 H (11.5-15.5) % Lymphocytes # 0.6 L (1.0-4.8) k/uL PT 27.8 H (10.0-12.5) sec INR 2.8 H (<1.2) APTT 41.4 H (22.0-30.0) sec Carbon Dioxide 32 H (22-30) mmol/L BUN 52 H (9-20) mg/dL Creatinine 1.46 H (0.66-1.25) mg/dL Glucose 110 H (74-99) mg/dL Calcium 8.3 L (8.4-10.2) mg/dL Magnesium 1.5 L (1.6-2.3) mg/dL Troponin I (0.000-0.034) ng/mL Crossmatch 01/19/24 01/19/24 01/19/24 Range/Units 16:13 17:05 18:33 RBC (4.30-5.90) m/uL Hgb (13.0-17.5) gm/dL Hct (39.0-53.0) % MCHC (31.0-37.0) g/dL RDW (11.5-15.5) % Lymphocytes # (1.0-4.8) k/uL PT (10.0-12.5) sec INR (<1.2) APTT (22.0-30.0) sec Carbon Dioxide (22-30) mmol/L BUN (9-20) mg/dL Creatinine (0.66-1.25) mg/dL Glucose (74-99) mg/dL Calcium (8.4-10.2) mg/dL Magnesium (1.6-2.3) mg/dL Troponin I 0.043 H* 0.040 H* (0.000-0.034) ng/mL Crossmatch See Detail 01/19/24 Range/Units 23:30 RBC (4.30-5.90) m/uL Hgb (13.0-17.5) gm/dL Hct (39.0-53.0) % MCHC (31.0-37.0) g/dL RDW (11.5-15.5) % Lymphocytes # (1.0-4.8) k/uL PT (10.0-12.5) sec INR (<1.2) APTT (22.0-30.0) sec Carbon Dioxide (22-30) mmol/L BUN (9-20) mg/dL Creatinine (0.66-1.25) mg/dL Glucose (74-99) mg/dL Calcium (8.4-10.2) mg/dL Magnesium (1.6-2.3) mg/dL Troponin I 0.042 H* (0.000-0.034) ng/mL Crossmatch Chest x-ray: report reviewed (Low lung volumes with generalized hazy appearance which could represent atelectasis versus pulmonary edema correlate with serum BNP) Assessment and Plan (1) GI bleed Narrative/Plan: 63-year-old male with a history of chronic anemia and iron deficiency anemia who had upper and lower endoscopy in November 2022 without any findings to explain anemia. He was sent here from [facility] with complaints of shortness of breath and noted to be anemic. Reporting bright red blood at times as well as dark stools over the last couple weeks duration. Patient does have atrial fibrillation and is on Coumadin, INR was 2.8 on admission as well as acute kidney injury. Troponins were elevated x 3. Cardiology has ruled out acute coronary syndrome. Unclear etiology of anemia may be secondary to AVM, patient has not undergone a small bowel capsule endoscopy some may need to consider that. This could be anemia of chronic disease. Will obtain iron studies. Current Visit: Yes Status: Acute Code(s): K92.2 - GASTROINTESTINAL HEMORRHAGE, UNSPECIFIED SNOMED Code(s): 12627223 (2) Atrial fibrillation Current Visit: No Status: Acute Code(s): I48.91 - UNSPECIFIED ATRIAL FIBRILLATION SNOMED Code(s): 71475628 (3) Chronic anemia Current Visit: No Status: Acute Code(s): D64.9 - ANEMIA, UNSPECIFIED SNOMED Code(s): 935461708 (4) Hypomagnesemia Current Visit: No Status: Acute Code(s): E83.42 - HYPOMAGNESEMIA SNOMED Code(s): 142607687 (5) Morbidly obese Current Visit: No Status: Acute Code(s): E66.01 - MORBID (SEVERE) OBESITY DUE TO EXCESS CALORIES SNOMED Code(s): 369159695 Plan: 1. Continue symptomatic and supportive care 2. Daily CBC, transfuse for hemoglobin less than 7 3. Hold anticoagulation 4. Protonix 40 mg daily 5. Patient may have clear liquid diet, n.p.o. after midnight 6. Anemia workup 7. Patient had recent EGD and colonoscopy 1 year ago for iron deficiency anemia. No source for bleeding. Will plan for repeat upper endoscopy tomorrow and possible small bowel capsule endoscopy Thank you for this consultation, we will continue to follow. Dr. Carlos Cee I agree with the dictator's note, documented as a scribe by Laura Gastelum.
--- NOTE | 2024-01-20 13:34 | CA ---
Transthoracic Echo Report Name: Yong Mccallum Age: 63 Gender: M : 1960 Exam Date: 01/20/2024 10:15 Exam Location: [place] [facility] Ht (in): 71 Wt (lb): 387 Ordering Physician: Elsa Gallo Attending/Referring Phys: [id number], Cleo Social Security Benefits Interviewer Joyce An, KIARA Procedure CPT: Indications: LV function Cardiac Hx: Technical Quality: Technically difficult study Contrast 1: Definity Total Dose (mL): 2 Contrast 2: Total Dose (mL): MEASUREMENTS (Male / Female) Normal Values 2D ECHO LV Diastolic Diameter PLAX 5.4 cm 4.2 - 5.9 / 3.9 - 5.3 cm LV Systolic Diameter PLAX 3.4 cm IVS Diastolic Thickness 1.6 cm 0.6 - 1.0 / 0.6 - 0.9 cm LVPW Diastolic Thickness 1.5 cm 0.6 - 1.0 / 0.6 - 0.9 cm LV Relative Wall Thickness 0.6 RV Internal Dim ED PLAX 3.9 cm LA Systolic Diameter LX 4.2 cm 3.0 - 4.0 / 2.7 - 3.8 cm LA Volume 218.1 cm??? 18 - 58 / 22 - 52 cm??? LA Volume Index 71.2 cm???/m??? 16 - 28 cm???/m??? M-MODE Aortic Root Diameter MM 4.0 cm MV E Point Septal Separation 1.4 cm DOPPLER AV Peak Velocity 150.4 cm/s AV Peak Gradient 9.1 mmHg MV Area PHT 5.2 cm??? MV Deceleration Time 143.9 ms TR Peak Velocity 268.7 cm/s TR Peak Gradient 28.9 mmHg Right Ventricular Systolic Press 33.5 mmHg FINDINGS Left Ventricle Left ventricular ejection fraction is estimated at 50-55 %. Left ventricular cavity size normal. Moderate concentric left ventricular hypertrophy. No obvious regional wall motion abnormalities. Right Ventricle Moderate right ventricular dilatation. Right ventricular systolic pressure within normal limits. Right Atrium Right atrium not well visualized. Left Atrium Mildly increased left atrial diameter. Severely increased left atrial volume. Severely increased left atrial area. Mitral Valve Structurally normal mitral valve. No mitral stenosis, regurgitation or prolapse. Aortic Valve Trileaflet aortic valve. No aortic valve stenosis or regurgitation. Tricuspid Valve Structurally normal tricuspid valve. No tricuspid stenosis. No tricuspid prolapse. Pulmonic Valve Pulmonic valve not well visualized. Pericardium No pericardial effusion. Aorta Moderate aortic dilatation at the level of the sinuses of valsalva 40 mm CONCLUSIONS Left ventricular ejection fraction 50-55% Moderately increased left ventricular wall thickness Moderate to severely dilated left atrium No mitral regurgitation No pericardial effusion Previewed by: Dr. Adriel Workman DO (Electronically Signed) Final Date: 20 January 2024 13:33
[2024-01-20] MEDS: PHYTONADIONE ORAL 5 MG/5 ML ORAL.SYRG PO STA (15:06)
[2024-01-20] MEDS ORDERED: LIDOCAINE 1% (10MG/ML) FOR IV START INTRADERMA PRN (18:42)
[2024-01-20] MEDS: DEXAMETHASONE SOD PHOSPHATE 4 MG/ML 1 ML VIAL IV ONE (19:24)
[2024-01-20] MEDS: LACTATED RINGERS 1,000 ML IV SCH (19:31)
[2024-01-20] MEDS: MAGNESIUM SULFATE-D5W PMX 1 GM in DEXTROSE/WATER 1 100ML.BAG IVPB ONE (23:49)
[2024-01-21 00:54] LABS: % Iron Saturation 6.67 (15.00-50.00); Ferritin 29.5 ng/mL (22.0-322.0)
[2024-01-21] MEDS ORDERED: HYDROmorphone 0.5 MG/0.5 ML SYRINGE IVP PRN (07:00)
[2024-01-21] MEDS ORDERED: MIDAZOLAM 2 MG/2 ML VIAL IV PRN (07:00)
--- NOTE | 2024-01-21 09:37 | P.PN ---
Subjective this is a pleasant 63 years old male with past medical history of multiple medical problems including atrial fibrillation on Coumadin, chronic heart failure, GERD, hypertension, osteoarthritis, sleep apnea Presents to The hospital for blood in his stool for about 2-3 weeks, his been having once a week black stool in 2 weeks ago he had fresh blood in the stool but always stopped Yesterday he started having more symptoms of fatigue and dyspnea he went to the [facility] where he was found to have low hemoglobin 6.9 Patient was transferred to this facility while he was getting the blood transfusion, hemoglobin is improved after that 7.8 Currently he is sitting up in chair, fully awake and oriented, he denies chest pain or dyspnea, he denies abdominal pain vomiting or diarrhea. No urinary symptoms. He uses a walker for his hip problem This slitter and rewinder in severity now and he wanted to be transferred to [address] [place] [address] He denies smoking alcohol or illicit drugs He is hemodynamically stable A CBC is unremarkable other than low hemoglobin as above INR is 2.8 secondary to Coumadin Liver enzymes is unremarkable Magnesium 1.5 troponin are elevated 0.043, BNP is 981 which is not significantly elevated Creatinine 1.4 is mildly elevated. Patient states he is been taking Bumex and metolazone. On admission his Coumadin was held. We got to hold his metolazone because of his high creatinine 01/21/2024 Patient is going for EGD today possible followed by capsule endoscopy. Patient himself denies abdominal pain today. No more blood in the stool. His vitals are stable Hemoglobin from today is pending He denies chest pain or dyspnea. Ejection fraction noted to be 50 to 55% Hemoglobin yesterday was 8.8 and creatinine came down to 1.2. Review of systems CONSTITUTIONAL: No fever, no malaise, no fatigue. HEENT: No recent visual problems or hearing problems. Denied any sore throat. CARDIOVASCULAR: No orthopnea, PND, no palpitations, no syncope. PULMONARY: No shortness of breath, no cough, no hemoptysis. MUSCULOSKELETAL/RHEUMATOLOGICAL: Denies any joint pain, swelling, or any muscle pain. ENDOCRINE: Denies any polyuria or polydipsia. Active Medications Generic Name Dose Route Start Last Admin Trade Name Freq PRN Reason Stop Dose Admin Acetaminophen 650 mg 01/19/24 17:50 Acetaminophen Tab 325 Mg Tab PO Q6HR PRN Mild Pain or Fever > 100.5 Hydrocodone Bitart/Acetaminophen 1 each 01/19/24 17:12 01/21/24 09:25 Hydrocodone/Apap 10-325mg 1 Each Tab PO 1 each Q6H PRN Administration Pain Hydrocodone Bitart/Acetaminophen 1 each 01/19/24 17:50 Hydrocodone/Apap 5-325mg 1 Each Tab PO Q4HR PRN Moderate Pain (Scale 4 to 6) Bumetanide 2 mg 01/21/24 21:00 Bumetanide 1 Mg Tab PO BID JAMAL Carvedilol 25 mg 01/19/24 18:00 01/21/24 09:25 Carvedilol 12.5 Mg Tab PO 25 mg BID@0800,1800 JAMAL Administration Ferrous Sulfate 325 mg 01/20/24 09:00 01/21/24 09:25 Ferrous Sulfate 325 Mg Tab PO 325 mg DAILY JAMAL Administration Fluticasone Propionate 1 spray 01/19/24 17:12 Fluticasone 50mcg/[place] Nasal 16gm EA NOSTRIL DAILY PRN Allergy Symptoms Hydromorphone HCl 0.5 mg 01/21/24 07:00 Hydromorphone 0.5 Mg/0.5 Ml Syringe IVP 01/21/24 23:00 Q5M PRN Phase 1 or 2 - Pain Control Lactated Ringer's 1,000 mls @ 20 mls/hr 01/20/24 18:45 01/20/24 19:31 Lactated Ringers IV 20 mls/hr .Q24H JAMAL Administration Lidocaine HCl 0.1 ml 01/20/24 18:42 Lidocaine 1% (10mg/Ml) For Iv Start INTRADERMA PER PROTOCOL PRN IV Start Losartan Potassium 100 mg 01/20/24 09:00 01/21/24 09:25 Losartan 50 Mg Tab PO 100 mg DAILY JAMAL Administration Midazolam HCl 2 mg 01/21/24 07:00 Midazolam 2 Mg/2 Ml Vial IV 01/21/24 23:00 ONCE PRN Pre-Op Anxiety Miscellaneous Information 1 each 01/20/24 08:26 Magnesium Replacement Protocol 1 Each Misc MISCELLANE DAILY PRN Per Protocol Protocol Morphine Sulfate 4 mg 01/19/24 17:50 Morphine Sulfate 4 Mg/Ml Syringe IV Q4HR PRN Severe Pain (Scale 7 to 10) Naloxone HCl 0.2 mg 01/19/24 17:50 Naloxone 0.4 Mg/Ml 1 Ml Vial IV Q2M PRN Opioid Reversal Non-Formulary Medication 5 mg 01/20/24 09:00 01/21/24 09:08 Tadalafil [Tadalafil] PO Not Given DAILY JAMAL Ondansetron HCl 4 mg 01/19/24 17:50 Ondansetron 4 Mg/2 Ml Vial IVP Q8HR PRN Nausea And Vomiting Pantoprazole Sodium 40 mg 01/20/24 09:00 01/21/24 05:10 Pantoprazole 40 Mg Tablet PO Not Given [facility] Potassium Chloride 10 meq 01/20/24 09:00 01/21/24 09:25 Potassium Chloride Er 10 Meq Tab.Er.Prt PO 10 meq DAILY JAMAL Administration Objective - Vital Signs Vital signs: Vital Signs Temp 98.8 F 01/21/24 08:00 Pulse 73 01/21/24 08:00 Resp 18 01/21/24 08:00 BP 164/89 01/21/24 08:00 Pulse Ox 96 01/21/24 08:00 FiO2 Intake & Output 01/20/24 01/21/24 01/21/24 18:59 06:59 18:59 Output Total 2750 920 0 Balance -2750 -920 0 Weight 176.4 kg Output: Urine 2750 920 Stool 0 0 Other: Voiding Method Urinal - Exam GENERAL: The patient is alert and oriented x3, not in any acute distress. Well developed, well nourished. HEENT: Pupils are round and equally reacting to light. EOMI. No scleral icterus. No conjunctival pallor. Normocephalic, atraumatic. No pharyngeal erythema. No thyromegaly. CARDIOVASCULAR: S1 and S2 present. No murmurs, rubs, or gallops. PULMONARY: Chest is clear to auscultation, no wheezing , no crackles. ABDOMEN: Soft, nontender, nondistended, normoactive bowel sounds. No palpable organomegaly. MUSCULOSKELETAL: No joint swelling or deformity. EXTREMITIES: No cyanosis, clubbing, or pedal edema. NEUROLOGICAL: Gross neurological examination did not reveal any focal deficits. SKIN: No rashes. no petechiae. - Labs CBC & Chem 7: 01/20/24 09:41 01/20/24 09:41 Labs: Abnormal Lab Results - Last 24 Hours (Table) 01/20/24 01/20/24 01/20/24 Range/Units 09:41 09:41 09:41 RBC 3.03 L (4.30-5.90) m/uL Hgb 8.8 L (13.0-17.5) gm/dL Hct 28.0 L (39.0-53.0) % RDW 16.4 H (11.5-15.5) % Lymphocytes # 0.6 L (1.0-4.8) k/uL PT 23.2 H (10.0-12.5) sec INR 2.3 H (<1.2) Potassium 3.4 L (3.5-5.1) mmol/L Chloride 97 L (98-107) mmol/L BUN 52 H (9-20) mg/dL Glucose 119 H (74-99) mg/dL Magnesium 1.3 L (1.6-2.3) mg/dL Iron (65-175) UG/DL TIBC (228-460) UG/DL % Saturation (15.00-50.00) 01/20/24 Range/Units 09:41 RBC (4.30-5.90) m/uL Hgb (13.0-17.5) gm/dL Hct (39.0-53.0) % RDW (11.5-15.5) % Lymphocytes # (1.0-4.8) k/uL PT (10.0-12.5) sec INR (<1.2) Potassium (3.5-5.1) mmol/L Chloride (98-107) mmol/L BUN (9-20) mg/dL Glucose (74-99) mg/dL Magnesium (1.6-2.3) mg/dL Iron 32 L (65-175) UG/DL TIBC 480 H (228-460) UG/DL % Saturation 6.67 L (15.00-50.00) Assessment and Plan Assessment: acute GI bleed Acute blood loss anemia Acute kidney injury, improving Coagulopathy secondary to Coumadin Elevated troponin most likely demand/supply mismatch Chronic atrial fibrillation on Coumadin, heart rate is controlled Chronic heart failure, unknown ejection fraction History of GERD Hypertension Osteoarthritis Sleep apnea Obesity with BMI of 54 Plan: Hold Coumadin Monitor hemoglobin and transfuse for hemoglobin less than 7 Continue with Protonix GI consult, patient going for EGD and possible capsule endoscopy Cardiology evaluation for elevated troponin and other cardiac problems Labs and medication were reviewed.. Continue same treatment. Continue with sym ptomatic treatment. Resume home medication. Monitor labs and vitals. DVT and GI prophylaxis. Further recommendations as per clinical course of the patient DVT prophylaxis: no anticoagulation for risk of bleed GI Prophylaxis: Pepcid Prognosis is guarded
[2024-01-21 10:09] LABS: INR 1.5 (<1.2); Prothrombin Time 15.6 sec (10.0-12.5)
[2024-01-21 10:49] LABS: Anisocytosis Slight; Basophils % (A) 0 %; Eosinophils % (A) 0 %; HCT 26.9 % (39.0-53.0); HGB 8.4 gm/dL (13.0-17.5); Hypochromasia Moderate; Lymphocytes # (A) 0.7 k/uL (1.0-4.8); Lymphocytes % (A) 12 %; MCH 28.2 pg (25.0-35.0); MCHC 31.2 g/dL (31.0-37.0); MCV 90.3 fL (80.0-100.0); Mean Platelet Volume 8.9; Monocytes # (A) 0.4 k/uL (0-1.0); Monocytes % (A) 7 %; Neutrophils % (A) 80 %; Platelet Count 199 k/uL (150-450); Poikilocytosis Slight; RBC 2.98 m/uL (4.30-5.90); RDW 16.8 % (11.5-15.5); WBC 6.2 k/uL (3.8-10.6)
[2024-01-21 11:13] LABS: Potassium 3.5 mmol/L (3.5-5.1)
[2024-01-21 11:14] LABS: African American GFR (CKD) >90 (>60 ml/min/1.73 sqM); Anion Gap 6 mmol/L; Blood Urea Nitrogen 34 mg/dL (9-20); Calcium 8.7 mg/dL (8.4-10.2); Carbon Dioxide 33 mmol/L (22-30); Chloride 99 mmol/L (98-107); Glucose 121 mg/dL (74-99); Magnesium 1.9 mg/dL (1.6-2.3); Non-African American GFR(CKD) 82 (>60 ml/min/1.73 sqM); Sodium 138 mmol/L (137-145)
--- NOTE | 2024-01-21 12:08 | P.PN ---
Subjective HISTORY OF PRESENT ILLNESS: This is a 63-year-old male with a past medical history significant for anemia, hypertension, congestive heart failure, pacemaker implantation, AV deonte ablation, and atrial fibrillation. Patient follows with a nipple machine operator in [place]. We have been asked to see the patient in consultation for congestive heart failure. Patient examined at the bedside in the emergency room. Patient initially presented to [facility] with a chief complaint of shortness of breath and feeling unwell. Patient was found to be anemic with a hemoglobin of 6.9. He did receive RBC transfusion. Most recent hemoglobin performed here was 7.8. He does state that he takes iron supplements on an outpatient basis as needed. The patient is prescribed warfarin on an outpatient basis secondary to history of atrial fibrillation. DIAGNOSTICS: - EKG not available at the time of this dictation - Chest xray low lung volumes with generalized hazy appearance which could represent atelectasis versus pulmonary edema. - Laboratory data: WBC 4.3. Hemoglobin 7.8. Platelet count 187. INR 2.8. Sodium 140. Potassium 3.8. BUN 52. Creatinine 1.46. Magnesium 1.5. proBNP 981. Troponin 0.043. 0.0410. 0.042. - Current home cardiac medications include Bumex 2 mg twice a day, carvedilol 25 mg twice a day, losartan 100 mg daily, Zaroxolyn 5 mg daily, and Coumadin 5 mg daily. - Most recent echocardiogram obtained in November 2022 reveals ejection fraction 50 to 55%, mild to moderate MR, mild TR. - Cardiac catheterization history: Patient believes he last had a cardiac catheterization in 2016 and states he did not require stenting. Exact details unavailable at this time 01/21/2024 Patient examined this morning. Patient is sitting up in the chair. Patient denies chest pain or pressure. He denies shortness of breath. Hemoglobin today remained stable at 8.4. His Coumadin remains on hold. Echocardiogram completed revealing ejection fraction 50 to 55%, no obvious regional wall motion abnormalities. Vital signs are stable. Blood pressure slightly on the higher side with a systolic between [id number] PHYSICAL EXAM: VITAL SIGNS: Reviewed. GENERAL: Well-developed in no acute distress. HEENT: Head is normocephalic. Pupils are equal, round. Sclerae anicteric. Mucous membranes of the mouth are moist. Neck supple. No JVD or thyromegaly LUNGS: Respirations even and unlabored. Lungs essentially clear to auscultation bilaterally. HEART: Irregular rate and rhythm. S1 and S2 heard. ABDOMEN: Soft. Nondistended. Nontender. EXTREMITIES: Normal range of motion. No clubbing or cyanosis. Peripheral pulses intact. Trace bilateral lower extremity edema NEUROLOGIC: Awake and alert. Oriented x 3. ASSESSMENT: Acute on chronic anemia Acute kidney injury, resolved Elevated troponins, flat, type II MS Chronic heart failure with preserved EF, currently euvolemic History of permanent pacemaker implantation History of AV deonte ablation Permanent atrial fibrillation on warfarin Hypomagnesemia PLAN: An acute coronary event has been ruled out Resume oral diuretics Add amlodipine 5 mg daily for optimal blood pressure control Patient's Eliquis co-pay is significant. However he can use a co-pay card for the first year. This was discussed with the patient and if cleared by GI services, we will resume Coumadin and not initiate Eliquis. Consider Watchman device in the future if patient continues to have issues with anemia on anticoagulation Patient to undergo endoscopy today with GI services Patient requesting to follow-up with Dr. Cee in [place] postdischarge Further recommendations pending patient course Nurse practitioner note has been reviewed by physician. Signing provider agrees with the documented findings, assessment, and plan of care documented by SERVICES ENGINEER as a scribe. Objective - Vital Signs Vital signs: Vital Signs Temp 98 F 01/21/24 11:26 Pulse 86 01/21/24 11:26 Resp 17 01/21/24 11:26 BP 170/95 01/21/24 11:26 Pulse Ox 98 01/21/24 11:26 FiO2 Intake & Output 01/20/24 01/21/24 01/21/24 18:59 06:59 18:59 Output Total 2750 920 300 Balance -2750 -920 -300 Weight 176.4 kg Output: Urine 2750 920 300 Stool 0 0 Other: Voiding Method Urinal - Labs CBC & Chem 7: 01/21/24 08:57 01/21/24 08:57 Labs: Abnormal Lab Results - Last 24 Hours (Table) 01/20/24 01/21/24 01/21/24 Range/Units 09:41 08:57 08:57 RBC 2.98 L (4.30-5.90) m/uL Hgb 8.4 L (13.0-17.5) gm/dL Hct 26.9 L (39.0-53.0) % RDW 16.8 H (11.5-15.5) % Lymphocytes # 0.7 L (1.0-4.8) k/uL PT (10.0-12.5) sec INR (<1.2) Carbon Dioxide 33 H (22-30) mmol/L BUN 34 H (9-20) mg/dL Glucose 121 H (74-99) mg/dL Iron 32 L (65-175) UG/DL TIBC 480 H (228-460) UG/DL % Saturation 6.67 L (15.00-50.00) 01/21/24 Range/Units 08:57 RBC (4.30-5.90) m/uL Hgb (13.0-17.5) gm/dL Hct (39.0-53.0) % RDW (11.5-15.5) % Lymphocytes # (1.0-4.8) k/uL PT 15.6 H (10.0-12.5) sec INR 1.5 H (<1.2) Carbon Dioxide (22-30) mmol/L BUN (9-20) mg/dL Glucose (74-99) mg/dL Iron (65-175) UG/DL TIBC (228-460) UG/DL % Saturation (15.00-50.00)
[2024-01-21] MEDS: SODIUM CHLORIDE 0.9% 500 ML 500 ML IV ONE ×2 (13:01→13:13)
[2024-01-21] MEDS ORDERED: LIDOCAINE 1% INJ 10MG/ML (20 ML MDV) ONE (13:04)
[2024-01-21] MEDS ORDERED: PROPOFOL 10 MG/ML 20 ML VIAL IV ONE (13:04)
--- NOTE | 2024-01-21 13:13 | P.PCN ---
Date of Procedure: 01/21/24 Procedure(s) Performed: BRIEF HISTORY: Patient is a 63-year-old, pleasant, White male admitted the hospital with severe symptomatic anemia and hemoglobin of 7.8 g/dL. He received 1 unit of PRBC transfusion. He has been having black tarry stools for the last few days. He is on Coumadin for A. fib which is currently on hold. INR today was 1.5. Last EGD and colonoscopy in several areas 2022 revealed small duodenal polyp and small colon polyps. He scheduled for an upper endoscopy to evaluate further. PROCEDURE PERFORMED: Esophagogastroduodenoscopy. PREOPERATIVE DIAGNOSIS: Black tarry stools and symptomatic anemia. IV sedation per anesthesia. PROCEDURE: After informed consent was obtained, the patient was brought into the endoscopy unit. IV sedation was administered by Anesthesia under continuous monitoring. Initially the Olympus GIF-140 video endoscope was inserted into the mouth. Esophagus intubated without any difficulty. It was gradually advanced into the stomach and duodenum and carefully examined. The bulb and the second part of the duodenum appeared normal.Small smooth polyp noted in the duodenal bulb that was not biopsied. The scope at this time was withdrawn to the stomach, adequately insufflated with air, and upon careful examination, mucosa of the antrum, body, Has mild diffuse gastritis but no active bleeding identified. No erosions or ulcerations seen.cardia and the fundus appeared normal. The scope was then withdrawn into the esophagus. Small hiatal hernia seen.The GE junction was located at 39 cm from the incisors. The esophagus appeared normal. There were no erosions or ulcerations seen and the patient tolerated the procedure well. IMPRESSION: 1. Mild diffuse gastritis but no evidence of esophagitis or peptic ulcer disease 2. Small hiatal hernia RECOMMENDATIONS: The findings of this examination were discussed with the patient as well as his family. He'll be scheduled for a small bowel capsule endoscopy Todayto evaluate further.
[2024-01-21] MEDS: SIMETHICONE 40 MG/0.6 ML DROPS 2,000 MG/30 ML BOTTLE PO ONE (15:58)
[2024-01-21] MEDS: amLODIPine 5 MG TAB PO SCH (19:23)
[2024-01-21] MEDS: BUMETANIDE 1 MG TAB PO SCH (21:01)
[2024-01-22 08:58] VITALS: RESP 17
[2024-01-22 11:15] LABS: Anisocytosis Slight; HCT 27.1 % (39.0-53.0); HGB 8.3 gm/dL (13.0-17.5); Hypochromasia Marked; MCH 28.5 pg (25.0-35.0); MCHC 30.5 g/dL (31.0-37.0); MCV 93.5 fL (80.0-100.0); Mean Platelet Volume 8.2; Platelet Count 199 k/uL (150-450); Poikilocytosis Slight; WBC 4.8 k/uL (3.8-10.6)
--- NOTE | 2024-01-22 12:27 | P.PN ---
Subjective HISTORY OF PRESENT ILLNESS: This is a 63-year-old male with a past medical history significant for anemia, hypertension, congestive heart failure, pacemaker implantation, AV deonte ablation, and atrial fibrillation. Patient follows with a food clerk in [place]. We have been asked to see the patient in consultation for congestive heart failure. Patient examined at the bedside in the emergency room. Patient initially presented to [facility] with a chief complaint of shortness of breath and feeling unwell. Patient was found to be anemic with a hemoglobin of 6.9. He did receive RBC transfusion. Most recent hemoglobin performed here was 7.8. He does state that he takes iron supplements on an outpatient basis as needed. The patient is prescribed warfarin on an outpatient basis secondary to history of atrial fibrillation. DIAGNOSTICS: - EKG not available at the time of this dictation - Chest xray low lung volumes with generalized hazy appearance which could represent atelectasis versus pulmonary edema. - Laboratory data: WBC 4.3. Hemoglobin 7.8. Platelet count 187. INR 2.8. Sodium 140. Potassium 3.8. BUN 52. Creatinine 1.46. Magnesium 1.5. proBNP 981. Troponin 0.043. 0.0410. 0.042. - Current home cardiac medications include Bumex 2 mg twice a day, carvedilol 25 mg twice a day, losartan 100 mg daily, Zaroxolyn 5 mg daily, and Coumadin 5 mg daily. - Most recent echocardiogram obtained in November 2022 reveals ejection fraction 50 to 55%, mild to moderate MR, mild TR. - Cardiac catheterization history: Patient believes he last had a cardiac catheterization in 2016 and states he did not require stenting. Exact details unavailable at this time 01/21/2024 Patient examined this morning. Patient is sitting up in the chair. Patient denies chest pain or pressure. He denies shortness of breath. Hemoglobin today remained stable at 8.4. His Coumadin remains on hold. Echocardiogram completed revealing ejection fraction 50 to 55%, no obvious regional wall motion abnormalities. Vital signs are stable. Blood pressure slightly on the higher side with a systolic between [id number] 01/22/2024 Patient is status post endoscopy revealing mild diffuse gastritis with no evidence of esophagitis or peptic ulcer disease. Small hiatal hernia. Patient also underwent small bowel capsule study. Results of this are currently pending. The patient denies any chest pain or pressure. He denies any shortness of breath. Vital signs are stable. Hemoglobin remained stable at 8.3. PHYSICAL EXAM: VITAL SIGNS: Reviewed. GENERAL: Well-developed in no acute distress. HEENT: Head is normocephalic. Pupils are equal, round. Sclerae anicteric. Mucous membranes of the mouth are moist. Neck supple. No JVD or thyromegaly LUNGS: Respirations even and unlabored. Lungs essentially clear to auscultation bilaterally. HEART: Irregular rate and rhythm. S1 and S2 heard. ABDOMEN: Soft. Nondistended. Nontender. EXTREMITIES: Normal range of motion. No clubbing or cyanosis. Peripheral pulses intact. Trace bilateral lower extremity edema NEUROLOGIC: Awake and alert. Oriented x 3. ASSESSMENT: Acute on chronic anemia Acute kidney injury, resolved Elevated troponins, flat, type II OR Chronic heart failure with preserved EF, currently euvolemic History of permanent pacemaker implantation History of AV deonte ablation Permanent atrial fibrillation on warfarin Hypomagnesemia PLAN: Continue current cardiac medications Patient states that he spoke with his insurance company and is able to get Eliquis covered for $10 a month for 24 months. We will wait further recommendations from GI services if/when patient can resume anticoagulation. When cleared from GI services, patient will begin Eliquis instead of warfarin. Consider Watchman device in the future if patient continues to have issues with anemia on anticoagulation Patient requesting to follow-up with Dr. Cee in [place] postdischarge Further recommendations pending patient course Nurse practitioner note has been reviewed by physician. Signing provider agrees with the documented findings, assessment, and plan of care documented by SAFETY COMPLIANCE SPECIALIST as a scribe. Objective - Vital Signs Vital signs: Vital Signs Temp 98.8 F 01/22/24 08:15 Pulse 90 01/22/24 08:15 Resp 17 01/22/24 08:15 BP 142/74 01/22/24 08:15 Pulse Ox 93 L 01/22/24 08:15 FiO2 Intake & Output 01/21/24 01/22/24 01/22/24 18:59 06:59 18:59 Intake Total 100 Output Total 650 1830 Balance -550 -1830 Weight 174.1 kg Intake: IV 100 Output: Urine 650 1830 Stool 0 Other: Voiding Method Urinal Urinal Urinal # Voids 2 - Labs CBC & Chem 7: 01/22/24 10:17 01/21/24 08:57 Labs: Abnormal Lab Results - Last 24 Hours (Table) 01/22/24 Range/Units 10:17 RBC 2.90 L (4.30-5.90) m/uL Hgb 8.3 L (13.0-17.5) gm/dL Hct 27.1 L (39.0-53.0) % MCHC 30.5 L (31.0-37.0) g/dL RDW 17.0 H (11.5-15.5) %
[2024-01-22] MEDS: MAGNESIUM SULFATE-D5W PMX 1 GM in DEXTROSE/WATER 1 100ML.BAG IVPB ONE (12:53)
[2024-01-22] MEDS: POTASSIUM CHLORIDE ER 20 MEQ TAB.ER PO STA (12:53)
--- NOTE | 2024-01-22 13:31 | P.PN ---
Subjective Progress Note Date: 01/22/24 Principal diagnosis: Anemia This is a pleasant 63-year-old male who was at [facility] and was transferred to [facility] concerns for GI bleed. Patient had gone to the emergency department for shortness of breath that have been worsening over the last couple of weeks. He has a past medical history including congestive heart failure, atrial fibrillation on Coumadin, hypertension, sleep apnea, GERD and osteoarthritis. Patient states he has had a history of anemia in the past and workup with upper and lower endoscopy back in November 2022 for questionable GI bleed. States over the last couple weeks he has had some bright red blood and some dark stools. States last week 1 to 2 days he again had some bright red blood noted and dark with wiping. He was noted to be anemic and was transferred here for further evaluation. Last dose of Coumadin was yesterday INR was 2.8. Last upper and lower endoscopy done 12/05/[address] Cee. Upper endoscopy revealed 1 cm duodenal polyp status post biopsy and antral gastritis. Colonoscopy revealed 2 broad-based hepatic flexure polyps status post polypectomy and scattered sigmoid diverticula. Patient states last bowel movement was yesterday morning he states there was no blood. Labs WBC 5.0 hemoglobin 8.8 hematocrit 28 platelet count 189,000 INR 2.3 sodium 139 potassium 3.4 BUN 52 creatinine 1.24 01/22/2024 Patient is seen and examined today as a follow-up. Yesterday he underwent upper endoscopy and a small bowel capsule endoscopy. Upper endoscopy revealed mild gastritis in the small bowel capsule endoscopy was normal with no active bleeding or old blood noted. Patient states he had no bowel movement today. He denies any abdominal pain, nausea or vomiting. No rectal bleeding. Hemoglobin 8.3. Objective - Vital Signs Vital signs: Vital Signs Temp 98.8 F 01/22/24 08:15 Pulse 90 01/22/24 08:15 Resp 17 01/22/24 08:15 BP 142/74 01/22/24 08:15 Pulse Ox 93 L 01/22/24 08:15 FiO2 Intake & Output 01/21/24 01/22/24 01/22/24 18:59 06:59 18:59 Intake Total 100 Output Total 650 1830 Balance -550 -1830 Weight 174.1 kg Intake: IV 100 Output: Urine 650 1830 Stool 0 Other: Voiding Method Urinal Urinal Urinal # Voids 2 - Exam General appearance: The patient is alert, oriented, appears in no acute dis tress. Morbidly obese. HET: Head is normocephalic and atraumatic. Conjunctiva pink. Sclera anicteric. Neck: Supple without lymphadenopathy. Abdomen: Soft, nontender, nondistended with bowel sounds. No guarding or rigidity. Extremities: Normal skin color and turgor. No pedal edema Skin: No rashes, no jaundice Neurological: No focal deficits. Alert and oriented. - Labs CBC & Chem 7: 01/22/24 10:17 01/21/24 08:57 Labs: Abnormal Lab Results - Last 24 Hours (Table) 01/21/24 01/21/24 01/21/24 Range/Units 08:57 08:57 08:57 RBC 2.98 L (4.30-5.90) m/uL Hgb 8.4 L (13.0-17.5) gm/dL Hct 26.9 L (39.0-53.0) % RDW 16.8 H (11.5-15.5) % Lymphocytes # 0.7 L (1.0-4.8) k/uL PT 15.6 H (10.0-12.5) sec INR 1.5 H (<1.2) Carbon Dioxide 33 H (22-30) mmol/L BUN 34 H (9-20) mg/dL Glucose 121 H (74-99) mg/dL Assessment and Plan (1) GI bleed Narrative/Plan: 63-year-old male with a history of chronic anemia and iron deficiency anemia who had upper and lower endoscopy in November 2022 without any findings to explain anemia. He was sent here from [facility] with complaints of shortness of breath and noted to be anemic. Reporting bright red blood at times as well as dark stools over the last couple weeks duration. Patient does have atrial fibrillation and is on Coumadin, INR was 2.8 on admission as well as acute kidney injury. Troponins were elevated x 3. Cardiology has ruled out acute coronary syndrome. Patient had been given vitamin K and underwent upper endoscopy with findings of mild gastritis and small bowel capsule study with no evidence of bleeding. Unclear etiology of anemia, however patient iron studies are consistent with iron deficiency anemia. Likely small angiectasia that was not visible during exams. Patient may resume anticoagulation. Recommend outpatient iron twice a day. Current Visit: Yes Status: Acute Code(s): K92.2 - GASTROINTESTINAL HEMORRHAGE, UNSPECIFIED SNOMED Code(s): 69773457 (2) Atrial fibrillation Current Visit: No Status: Acute Code(s): I48.91 - UNSPECIFIED ATRIAL FIBRILLATION SNOMED Code(s): 25521118 (3) Chronic anemia Current Visit: No Status: Acute Code(s): D64.9 - ANEMIA, UNSPECIFIED SNOM ED Code(s): 442045144 (4) Hypomagnesemia Current Visit: No Status: Acute Code(s): E83.42 - HYPOMAGNESEMIA SNOMED Code(s): 425136674 (5) Morbidly obese Current Visit: No Status: Acute Code(s): E66.01 - MORBID (SEVERE) OBESITY DUE TO EXCESS CALORIES SNOMED Code(s): 597607314 Plan: 1. Continue symptomatic and supportive care 2. May resume anticoagulation tomorrow 3. Recommend discharge on iron twice daily 4. Diet as tolerated 5. Follow-up with gastroenterology outpatient for anemia 6. Upper endoscopy and small bowel capsule endoscopy completed. No evidence of old blood or active bleeding. Patient is cleared by gastroenterology for discharge Thank you for this consultation. Dr. Carlos Cee I agree with the dictator's note, documented as a scribe by Laura Gastelum.
[2024-01-22 13:42] VITALS: BP 112/56; PULSE 72; TEMP 98.2
[2024-01-22] MEDS ORDERED: FERROUS SULFATE 325 MG TAB PO SCH (17:30)
--- NOTE | 2024-01-23 10:25 | P.DS ---
Providers Date of admission: 01/21/24 10:02 Attending physician: Gagan Hurley Consults: 01/19/24 17:50 Consult Physician Urgent Consulting Provider: Jaren Hassan Consult Reason/Comments: CHF exacerbation Do you want consulting provider notified?: Yes Consult Physician Urgent Consulting Provider: Sheila Cee Consult Reason/Comments: GI bleed Do you want consulting provider notified?: Yes Primary care physician: Tommie Mccain Hospital Course: Diagnoses acute GI bleed, resolved Acute blood loss anemia Acute kidney injury, improving Coagulopathy secondary to Coumadin Elevated troponin most likely demand/supply mismatch Chronic atrial fibrillation on Coumadin, heart rate is controlled Chronic heart failure, unknown ejection fraction History of GERD Hypertension Osteoarthritis Sleep apnea Obesity with BMI of 54 Hospital course: this is a pleasant 63 years old male with past medical history of multiple medical problems including atrial fibrillation on Coumadin, chronic heart failure, GERD, hypertension, osteoarthritis, sleep apnea Presents to The hospital for blood in his stool for about 2-3 weeks, his been having once a week black stool in 2 weeks ago he had fresh blood in the stool but always stopped Yesterday he started having more symptoms of fatigue and dyspnea he went to the [facility] where he was found to have low hemoglobin 6.9 Patient was transferred to this facility while he was getting the blood transfusion, hemoglobin is improved after that 7.8 and 8.3 upon discharge. His INR was more than 2 on admission and improved down to 1.5 yesterday and probably even less upon discharge. Patient evaluated by GI service, EGD showing mild gastritis but diffuse and there is small hiatal hernia, small bowel endoscopy capsule was negative per my discussions with GI team who cleared him for discharge today. Patient is show eager to be discharged today and he wants his to pick him up prior to going to work Cardiology were involved in the care of the patient for elevated troponin which is secondary to demand supply mismatch no evidence of acute coronary syndrome he has a chronic euvolemic heart failure currently and he was cleared for discharge. As per discussions with consultants they recommended to transfer his Coumadin to [facility], patient is agreeable. Patient states he called his insurance company and they are going to provide Eliquis for him $10 per month and he wants to be discharged. I discussed with Clare the bedside nurse to give him a coupon of free Eliquis x 1 month upon discharge just in case. On the day of discharge she denies chest pain or dyspnea. No abdominal pain. He states no more blood or black stool. Vitals stable Patient was cleared for discharge by GI and cardiology services. Problems and management plan were discussed with the patient and he verbalized understanding and acceptance Patient was found stable and can be discharged home in guarded prognosis however he needs follow-up as an outpatient. Patient was instructed to follow up with PCP Dr. quinones one week and patient agrees Patient was instructed to follow-up with Dr. Graham school inspector in 1 to [address] Graham programming manager in 1 to 2 weeks and he agrees Physical exam Gen: patient is a AAOx3, no distress CVS: S1-S2, RRR, no murmur Lungs: B/L CTA, no wheezing Abdomen: soft, no distention, no tenderness, positive bowel sounds Extremity: no leg edema or induration Time spent more than 35 minutes Plan - Discharge Summary Discharge Rx Participant: No New Discharge Prescriptions: New Ferrous Sulfate [Iron (65 MG Elemental)] 325 mg PO BID-W/MEALS #60 tab amLODIPine [Norvasc] 5 mg PO DAILY #30 tab Apixaban [Eliquis] 5 mg PO BID #60 tab Continue Potassium Chloride ER [K-Dur 10] 10 meq PO DAILY carvediloL [Coreg] 25 mg PO BID@0800,1800 HYDROcodone/APAP 10-325MG [Macfarlan 10-325] 1 tab PO Q6H PRN PRN Reason: Pain Losartan Potassium [Cozaar] 100 mg PO DAILY Fluticasone Nasal Hosmer [Flonase Nasal Hosmer] 1 spray EA NOSTRIL DAILY PRN PRN Reason: Allergy Symptoms Bumetanide [BUMEX] 2 mg PO BID Changed Omeprazole 20 mg PO BID #60 cap Ferrous Sulfate [Iron (65 MG Elemental)] 325 mg PO BID #60 Discontinued Diclofenac Sodium [Voltaren] 75 mg PO BID PRN PRN Reason: Pain metOLazone [Zaroxolyn] 5 mg PO DAILY Warfarin [Coumadin] 5 mg PO DAILY No Action tadalafiL 5 mg PO DAILY Discharge Medication List Losartan Potassium [Cozaar] 100 mg PO DAILY 01/15/22 [History] Bumetanide [BUMEX] 2 mg PO BID 01/19/24 [History] Fluticasone Nasal Hosmer [Flonase Nasal Hosmer] 1 spray EA NOSTRIL DAILY PRN 01/19/24 [History] HYDROcodone/APAP 10-325MG [Macfarlan 10-325] 1 tab PO Q6H PRN 01/19/24 [History] Potassium Chloride ER [K-Dur 10] 10 meq PO DAILY 01/19/24 [History] carvediloL [Coreg] 25 mg PO BID@0800,1800 01/19/24 [History] tadalafiL 5 mg PO DAILY 01/19/24 [History] Apixaban [Eliquis] 5 mg PO BID #60 tab 01/22/24 [Rx] Ferrous Sulfate [Iron (65 MG Elemental)] 325 mg PO BID #60 01/22/24 [Rx] Ferrous Sulfate [Iron (65 MG Elemental)] 325 mg PO BID-W/MEALS #60 tab 01/22/24 [Rx] Omeprazole 20 mg PO BID #60 cap 01/22/24 [Rx] amLODIPine [Norvasc] 5 mg PO DAILY #30 tab 01/22/24 [Rx] Follow up Appointment(s)/Referral(s): Sheila Cee MD [STAFF PHYSICIAN] - 2 Weeks Tommie Mccain MD [Primary Care Provider] - 1-2 days Moe Cee MD [STAFF PHYSICIAN] - 1 Week (please make appt for [facility]) Patient Instructions/Handouts: *Surgery [facility] - Small Bowel Capsule Endoscopy Discharge Instructions, Heart Failure (DC), Gastrointestinal Bleeding (DC) Activity/Diet/Wound Care/Special Instructions: Heart healthy diet Activity is restricted till you see your doctor We recommend to avoid NSAIDs like no Motrin, no Voltaren, no naproxen, no Mobic etc. We recommend to start Eliquis 5 mg orally twice daily from tomorrow 01/23/2024 Discharge Disposition: HOME SELF-CARE
--- NOTE | 2024-01-26 13:29 | CDI ---
Documentation Clarification Form Date: 01/26/2024 01:00:31 PM From: Eri Su RN, CCDS Email: [email or web address] Admit Date: 01/21/2024 10:02:00 AM Patient Name: Yong Mccallum Visit Number: [id number] Discharge Date: 01/22/2024 01:19:00 PM ATTENTION: The Clinical Documentation Specialists (CDI) and [facility] Coding Staff appreciate your assistance in clarifying documentation. Please respond to the clarification below the line at the bottom and electronically sign. The CDI & [facility] Coding staff will review the response and follow-up if needed. Please note: Queries are made part of the Legal Health Record. If you have any questions, please contact the author of this message via ITS. Dr. Light E Sheet There is documentation of GI bleed, acute blood loss anemia and coagulopathy. Based on this information and the findings below, is there an additional diagnosis that is clinically appropriate for this patient? History/Risk Factors: Atrial fibrillation on Coumadin, chronic heart failure, GERD, hypertension, osteoarthritis and sleep apnea. Presents from other hospital due to blood in his stool for about 2-3 weeks. Has been having once a week black stool. 2 weeks ago he had fresh blood in the stool. Admitted with acute GIB, acute blood loss anemia and coagulopathy secondary to Coumadin. Clinical Indicators: H&P: "Coagulopathy secondary to Coumadin. On admission his Coumadin was held." 01/19 GI: "Hold anticoagulation." 01/19 Cardiology: "Consider Watchman device in the future if patient continues to have issues with anemia on anticoagulation." 01/21 GI: "Patient had been given vitamin K and underwent upper endoscopy with findings of mild gastritis and small bowel capsule study with no evidence of bleeding." 01/18 PT/PTT/INR: 27.8/41.4/2.8 01/19 PT/INR: 23.2/2.3 01/20 PT/INR: 15.6/1.5 01/18-01/21 Hgb: 7.8-8.8-8.3 Treatment: Hold Coumadin; Protonix 40mg po AC breakfast 01/19-01/21 Transfusion: 1 unit PRBC's on 01/18 Reversal agent: Vitamin K 5mg po x1 on 01/19 Is there an additional diagnosis that is clinically appropriate for this patient? [x ] Hemorrhage due to coagulopathy from Coumadin [ ] No additional diagnosis [ ] Other, please specify [ ] Unable to determine MTDD
== END 2024-01-22 13:19 | disposition home or self-care (01) | DRG 813 ==
LOC: EC 15:48 → SUPCPDRO 15:48 → 3SCARD 17:51 → OBSVTOIN 01-21 10:02
PROVIDERS: ADMIT Hospitalist; ATTEND Hospitalist
PROC: 30233N1 Transfusion of Nonautologous Red Blood Cells into Peripheral Vein, Percutaneous Approach (ICD-10-PCS; 2024-01-19)
PROC: 0DJ08ZZ Inspection of Upper Intestinal Tract, Via Natural or Artificial Opening Endoscopic (ICD-10-PCS; principal; 2024-01-21 08:00)
DX: D68.32 Hemorrhagic disorder due to extrinsic circulating anticoagulants (principal); I21.A1 Myocardial infarction type 2; D62 Acute posthemorrhagic anemia; N17.9 Acute kidney failure, unspecified; I50.32 Chronic diastolic (congestive) heart failure; I48.21 Permanent atrial fibrillation; Z68.43 Body mass index [BMI] 50.0-59.9, adult; K29.70 Gastritis, unspecified, without bleeding; Z95.0 Presence of cardiac pacemaker; I11.0 Hypertensive heart disease with heart failure; Z79.01 Long term (current) use of anticoagulants; E83.42 Hypomagnesemia; E66.01 Morbid (severe) obesity due to excess calories; G47.30 Sleep apnea, unspecified; M19.90 Unspecified osteoarthritis, unspecified site; K21.9 Gastro-esophageal reflux disease without esophagitis; T45.515A Adverse effect of anticoagulants, initial encounter; K44.9 Diaphragmatic hernia without obstruction or gangrene; X58.XXXA Exposure to other specified factors, initial encounter; D50.9 Iron deficiency anemia, unspecified; K31.7 Polyp of stomach and duodenum; K57.30 Diverticulosis of large intestine without perforation or abscess without bleeding; I08.1 Rheumatic disorders of both mitral and tricuspid valves; K76.0 Fatty (change of) liver, not elsewhere classified; Z79.899 Other long term (current) drug therapy; Z87.19 Personal history of other diseases of the digestive system
CPT/HCPCS: 36415; 36430; 43235; 71045; 80048; 80053; 82607; 82728; 82746; 83540; 83550; 83605; 83735; 83880; 84484; 85025; 85027; 85610; 85730; 86850; 86900; 86901; 86920; 91110; 93005; 93306; 96365; 96366; 96375; 99285

== ENCOUNTER 2024-05-02 16:33 | Observation (INO) | payer OTHER ==
[2024-05-02] MEDS ORDERED: NALOXONE 0.4 MG/ML 1 ML VIAL IV PRN (16:55)
[2024-05-02] MEDS ORDERED: MORPHINE SULFATE 4 MG/ML SYRINGE IV PRN (17:00)
[2024-05-02] MEDS ORDERED: ONDANSETRON 4 MG/2 ML VIAL IVP PRN (17:00)
[2024-05-02] MEDS ORDERED: Kcentra / Balfaxar PER PHARMACY 1 EACH MISC MISCELLANE PRN (17:09)
--- NOTE | 2024-05-02 17:09 | ED ---
Recheck HPI - General Chief Complaint: GI Bleed Stated Complaint: GI Bleed, Cardiac surgery follow up Time Seen by Provider: 05/02/24 16:46 Source: patient, RN notes reviewed, old records reviewed Mode of arrival: ambulatory Limitations: no limitations - History of Present Illness Initial Comments: This is a 63-year-old male to the ER for evaluation today. Patient presents today for evaluation in regards to significant anemia on Eliquis with history of GI bleed. Patient is excepted getting transfusion from outside facility MD Complaint: abnormal lab -: days(s) Returns Today for: Called Because of Abnormal Lab/Test Associated Symptoms: none Treatments Prior to Arrival: other (0) - Related Data Home Medications Medication Instructions Recorded Confirmed Losartan Potassium [Cozaar] 100 mg PO DAILY 01/15/22 01/19/24 Bumetanide [BUMEX] 2 mg PO BID 01/19/24 01/19/24 Fluticasone Nasal [place] [Flonase 1 spray EA NOSTRIL DAILY PRN 01/19/24 01/19/24 Nasal [place]] HYDROcodone/APAP 10-325MG [[place] 1 tab PO Q6H PRN 01/19/24 01/19/24 10-325] Potassium Chloride ER [K-Dur 10] 10 meq PO DAILY 01/19/24 01/19/24 carvediloL [Coreg] 25 mg PO BID@0800,1800 01/19/24 01/19/24 tadalafiL 5 mg PO DAILY 01/19/24 01/19/24 Previous Rx's Medication Instructions Recorded Apixaban [Eliquis] 5 mg PO BID #60 tab 01/22/24 Ferrous Sulfate [Iron (65 MG 325 mg PO BID #60 01/22/24 Elemental)] Ferrous Sulfate [Iron (65 MG 325 mg PO BID-W/MEALS #60 tab 01/22/24 Elemental)] Omeprazole 20 mg PO BID #60 cap 01/22/24 amLODIPine [Norvasc] 5 mg PO DAILY #30 tab 01/22/24 Allergies Allergy/AdvReac Type Severity Reaction Status Date / Time No Known Allergies Allergy Verified 05/02/24 16:47 Review of Systems ROS Statement: Those systems with pertinent positive or pertinent negative responses have been documented in the HPI. ROS Other: All systems not noted in ROS Statement are negative. Past Medical History Past Medical History: Atrial Fibrillation, Heart Failure, GERD/Reflux, Hypertension, Osteoarthritis (OA), Sleep Apnea/CPAP/BIPAP Additional Past Medical History / Comment(s): uses CPAP, fatty liver, current umbilical hernia, edema lower extremities History of Any Multi-Drug Resistant Organisms: None Reported Past Surgical History: Cardiac Ablation, Heart Catheterization, Hernia Repair, Pacemaker Additional Past Surgical History / Comment(s): EP studies, hernia repair as a baby Past Anesthesia/Blood Transfusion Reactions: No Reported Reaction Type of Cardiac Device: Permanent Pacemaker Device Placement Date:: 1996 original, upgraded 2016 Past Psychological History: No Psychological Hx Reported Smoking Status: Current some day smoker, Former smoker Past Alcohol Use History: None Reported Past Drug Use History: Marijuana General Exam Limitations: no limitations General appearance: alert, in no apparent distress Head exam: Present: atraumatic, normocephalic, normal inspection Eye exam: Present: normal appearance, PERRL, EOMI. Absent: scleral icterus, conjunctival injection, periorbital swelling ENT exam: Present: normal exam, mucous membranes moist Neck exam: Present: normal inspection. Absent: tenderness, meningismus, lymphadenopathy Respiratory exam: Present: normal lung sounds bilaterally. Absent: respiratory distress, wheezes, rales, rhonchi, stridor Cardiovascular Exam: Present: regular rate, normal rhythm, normal heart sounds. Absent: systolic murmur, diastolic murmur, rubs, gallop, clicks GI/Abdominal exam: Present: soft, normal bowel sounds. Absent: distended, tenderness, guarding, rebound, rigid Extremities exam: Present: normal inspection, full ROM, normal capillary refill. Absent: tenderness, pedal edema, joint swelling, calf tenderness Back exam: Present: normal inspection Neurological exam: Present: alert, oriented X3, CN II-XII intact Psychiatric exam: Present: normal affect, normal mood Skin exam: Present: warm, dry, intact, normal color. Absent: rash Course Vital Signs 05/02/24 16:36 Temperature 97.9 F Pulse Rate 75 Respiratory 18 Rate Blood Pressure 147/80 O2 Sat by Pulse 95 Oximetry - Reevaluation(s) Reevaluation #1: 05/02/24 17:06 Records reviewed Reevaluation #2: 05/02/24 17:06 Patient symptoms are improving here in the ER Reevaluation #3: 05/02/24 17:06 Patient informed of results and questions answered Reevaluation #4: Was pt. sent in by a medical professional or institution (LEIDA Foster, MEDICAL FRONT DESK COORDINATOR, urgent care, hospital, or snf...) When possible be specific @ -no Did you speak to anyone other than the patient for history (EMS, parent, family, police, friend...)? What history was obtained from this source @ -no Did you review nursing and triage notes (agree or disagree)? Why? @ -agree Are old charts reviewed (outside hosp., previous admission, EMS record, old EKG, old radiological studies, urgent care reports/EKG's, snf records)? Report findings @ -yes Differential Diagnosis (chest pain, altered mental status, abdominal pain women, abdominal pain men, vaginal bleeding, weakness, fever, dyspnea, syncope, headache, dizziness, GI bleed, back pain, seizure, CVA, palpatations, mental health, musculoskeletal)? @ -prior EKG interpreted by me (3pts min.). @ -yes X-rays interpreted by me (1pt min.). @ -yes negative for acute disease CT interpreted by me (1pt min.). @ -no U/S interpreted by me (1pt. min.). @ -no What testing was considered but not performed or refused? (CT, X-rays, U/S, labs)? Why? @ -none What meds were considered but not given or refused? Why? @ -none Did you discuss the management of the patient with other professionals (pro fessionals i.e. LEIDA Foster, MEDICAL FRONT DESK COORDINATOR, lab, RT, psych nurse, social work case manager, vice president of advertising, teacher, bank operations officer, director of casework services)? Give summary @ -no Was smoking cessation discussed for >3mins.? @ -no Was critical care preformed (if so, how long)? @ -no Were there social determinants of health that impacted care today? How? (Homelessness, low income, unemployed, alcoholism, drug addiction, transportation, low edu. Level, literacy, decrease access to med. care, senior living, rehab)? @ -none Was there de-escalation of care discussed even if they declined (Discuss DNR or withdrawal of care, Hospice)? DNR status @ -no What co-morbidities impacted this encounter? (DM, HTN, Smoking, COPD, CAD, Cancer, CVA, ARF, Chemo, Hep., AIDS, mental health diagnosis, sleep apnea, morbid obesity)? @ -none Was patient admitted / discharged? Hospital course, mention meds given and route, prescriptions, significant lab abnormalities, going to OR and other pertinent info. @ - Undiagnosed new problem with uncertain prognosis? @ -no Drug Therapy requiring intensive monitoring for toxicity (Heparin, Nitro, Insulin, Cardizem)? @ -no Were any procedures done? @ -no Diagnosis/symptom? @ - Acute, or Chronic, or Acute on Chronic? @ -Acute Uncomplicated (without systemic symptoms) or Complicated (systemic symptoms)? @ -Complicated Side effects of treatment? @ -no Exacerbation, Progression, or Severe Exacerbation? @ -exacerbation Poses a threat to life or bodily function? How? (Chest pain, [place], [place], pneumonia, PE, COPD, DKA, ARF, appy, cholecystitis, CVA, Diverticulitis, Homicidal, Suicidal, threat to staff... and all critical care pts) @ -yes Reevaluation #5: Differential GI Bleed: Esophageal varices, aortoenteric fistula, [place], gastritis, peptic ulcer disease, diverticulosis, inflammatory bowel disease, hemorrhoids, fissure, colitis, malignancy, Meckels diverticulum, this is not meant to be an all- inclusive list. - Consultations Consultation #1: Spoke with [facility] who agrees to admit this patient Medical Decision Making - Medical Decision Making 63 male comes in for significant anemia on Eliquis, patient has hemoglobin of 6 is transfused prior to arrival as he excepted in transfer from outside facility. Patient is given reversal therapy for Eliquis due to significant anemia with concerns for underlying GI bleed history of GI bleed, Dr. Graham will see the patient tomorrow, patient does not take Eliquis for PE or DVT, Eliquis is for atrial fibrillation chronic with pacemaker Disposition Clinical Impression: Atrial fibrillation, Chronic anemia, GI bleed, Anemia, Coagulopathy Disposition: ADMITTED IP TO THIS [facility] Condition: Serious Referrals: Tommie Mccain MD [Primary Care Provider] - 1-2 days Time of Disposition: 17:00
[2024-05-02] MEDS ORDERED: [UNRECOGNIZED DRUG - MIXTURE] IV ONE ×2 (17:15→17:20)
[2024-05-02] MEDS: SODIUM CHLORIDE 0.9% 1,000 ML IV SCH (18:49)
[2024-05-02] MEDS ORDERED: [UNRECOGNIZED DRUG - OTHER] IV ONE (18:50)
[2024-05-02] MEDS: [UNRECOGNIZED DRUG - MIXTURE] IV ONE (18:50)
[2024-05-02 19:28] LABS: Anisocytosis Slight; Basophils % (A) 1 %; Eosinophils # (A) 0.1 k/uL (0-0.7); Eosinophils % (A) 3 %; HCT 25.7 % (39.0-53.0); HGB 7.6 gm/dL (13.0-17.5); Hypochromasia Marked; Lymphocytes # (A) 0.5 k/uL (1.0-4.8); Lymphocytes % (A) 12 %; MCH 29.3 pg (25.0-35.0); MCHC 29.8 g/dL (31.0-37.0); MCV 98.3 fL (80.0-100.0); Macrocytosis Slight; Mean Platelet Volume 8.1; Monocytes # (A) 0.3 k/uL (0-1.0); Monocytes % (A) 8 %; Neutrophils # (A) 2.9 k/uL (1.3-7.7); Neutrophils % (A) 73 %; Platelet Count 196 k/uL (150-450); Poikilocytosis Slight; RBC 2.61 m/uL (4.30-5.90); RDW 16.9 % (11.5-15.5)
--- NOTE | 2024-05-02 19:29 | US ---
EXAMINATION TYPE: US renals and bladder DATE OF EXAM: 05/02/2024 COMPARISON: NONE CLINICAL INDICATION: Male, 63 years old with history of pain; 385lbs, difficult to penetrate, order s tates pain, patient has none, CKD, scanned in recliner EXAM MEASUREMENTS: Right Kidney: 12.5 x 5.7 x 6.2cm Left Kidney: 12.5 x 4.4 x 7.7cm Right Kidney: No hydronephrosis or masses seen Left Kidney: No hydronephrosis or masses seen Bladder: not distended There is no evidence for hydronephrosis at this point in time. No nephrolithiasis is seen. No lolly s are identified. The urinary bladder is nondistended. Bilateral ureteral jets are seen. Increased echotexture to liver. IMPRESSION: 1. No evidence for obstructive uropathy or renal calculus. 2. Hepatic steatosis.
[2024-05-02 19:41] LABS: ALT 23 U/L (4-49); AST 40 U/L (17-59); African American GFR (CKD) 51 (>60 ml/min/1.73 sqM); Albumin 3.7 g/dL (3.5-5.0); Alkaline Phosphatase 72 U/L (38-126); Anion Gap 9 mmol/L; Blood Urea Nitrogen 48 mg/dL (9-20); Calcium 8.8 mg/dL (8.4-10.2); Carbon Dioxide 25 mmol/L (22-30); Chloride 105 mmol/L (98-107); Glucose 107 mg/dL (74-99); Non-African American GFR(CKD) 44 (>60 ml/min/1.73 sqM); Phosphorus 3.7 mg/dL (2.5-4.5); Potassium 4.2 mmol/L (3.5-5.1); Sodium 139 mmol/L (137-145); Total Bilirubin 1.2 mg/dL (0.2-1.3); Total Protein 6.9 g/dL (6.3-8.2)
[2024-05-02] MEDS ORDERED: FLUTICASONE NASAL 50MCG/SPRAY 16GM BTL EA NOSTRIL PRN (21:15)
[2024-05-02] MEDS: LOSARTAN 50 MG TAB PO STA (21:38)
[2024-05-02] MEDS: carvediloL 12.5 MG TAB PO STA (21:38)
[2024-05-02] MEDS: HYDROcodone/APAP 10-325MG 1 EACH TAB PO SCH (23:24)
[2024-05-03 04:05] LABS: Anisocytosis Slight; Basophils % (A) 0 %; Eosinophils # (A) 0.2 k/uL (0-0.7); Eosinophils % (A) 3 %; HCT 25.8 % (39.0-53.0); HGB 7.8 gm/dL (13.0-17.5); Hypochromasia Marked; Lymphocytes # (A) 0.6 k/uL (1.0-4.8); Lymphocytes % (A) 10 %; MCH 29.7 pg (25.0-35.0); MCHC 30.2 g/dL (31.0-37.0); MCV 98.5 fL (80.0-100.0); Macrocytosis Slight; Mean Platelet Volume 7.9; Monocytes # (A) 0.6 k/uL (0-1.0); Monocytes % (A) 10 %; Neutrophils # (A) 4.3 k/uL (1.3-7.7); Neutrophils % (A) 74 %; Platelet Count 192 k/uL (150-450); Poikilocytosis Slight; RBC 2.62 m/uL (4.30-5.90); RDW 17.1 % (11.5-15.5); WBC 5.9 k/uL (3.8-10.6)
[2024-05-03 04:09] LABS: ALT 22 U/L (4-49); AST 36 U/L (17-59); African American GFR (CKD) 55 (>60 ml/min/1.73 sqM); Albumin 3.6 g/dL (3.5-5.0); Alkaline Phosphatase 74 U/L (38-126); Anion Gap 8 mmol/L; Blood Urea Nitrogen 47 mg/dL (9-20); Calcium 8.8 mg/dL (8.4-10.2); Carbon Dioxide 25 mmol/L (22-30); Chloride 105 mmol/L (98-107); Glucose 105 mg/dL (74-99); Lipase 133 U/L (23-300); Non-African American GFR(CKD) 47 (>60 ml/min/1.73 sqM); Phosphorus 3.9 mg/dL (2.5-4.5); Potassium 4.2 mmol/L (3.5-5.1); Sodium 138 mmol/L (137-145); Total Bilirubin 1.1 mg/dL (0.2-1.3); Total Protein 6.6 g/dL (6.3-8.2)
[2024-05-03] MEDS: carvediloL 12.5 MG TAB PO SCH (07:32)
[2024-05-03] MEDS ORDERED: NON FORMULARY DRUG (Omeprazole [Omeprazole] 20 MG Capsule.Dr) PO SCH (09:00)
[2024-05-03] MEDS: LOSARTAN 50 MG TAB PO SCH (09:00)
[2024-05-03] MEDS: FERROUS SULFATE 325 MG TAB PO SCH (09:01)
[2024-05-03] MEDS: BUMETANIDE 1 MG TAB PO SCH (09:01)
[2024-05-03] MEDS: ETODOLAC 400 MG TAB PO SCH (09:01)
[2024-05-03] MEDS: POTASSIUM CHLORIDE ER 10 MEQ TAB.ER.PRT PO SCH (09:02)
[2024-05-03] MEDS: PANTOPRAZOLE 40 MG/10 ML VIAL IV SCH (09:05)
[2024-05-03] MEDS: NON FORMULARY DRUG (Tadalafil [Tadalafil] 5 MG Tablet) PO SCH (09:13)
--- NOTE | 2024-05-03 10:49 | P.CONS ---
History of Present Illness - Reason for Consult Consult date: 05/03/24 [facility] Requesting physician: Alex Tiwari - Chief Complaint Low hemoglobin - History of Present Illness This is a pleasant 63-year-old male with a history of chronic iron deficiency anemia who also has hypertension, chronic lower extremity wounds and atrial fibrillation on Eliquis who was sent into the emergency department for low hemoglobin. Patient has had multiple endoscopies in the last couple years. Most recently he had upper endoscopy and small bowel capsule study done in January of this year. Upper endoscopy with findings of mild gastritis, hiatal hernia. Small bowel capsule was normal with no old blood seen or active bleeding and no other findings to explain iron deficiency anemia. Prior to that in November 2022 he had an upper endoscopy and lower endoscopy. Upper endoscopy with findings of duodenal polyp status post polypectomy and diffuse mild gastritis. Colonoscopy status post polypectomies and sigmoid diverticulosis. Patient supposed be taking iron daily but he states that it causes him to either have constipation or diarrhea so he only takes it about 3 days a week. He denies any follow-up with any periodontal assistant. States that he is supposed to see his rotary shear cutter again and they are considering Watchman procedure so he can come o ff of anticoagulation. He denies any blood in his stool or black stool, no abdominal pain, nausea or vomiting. Review of Systems REVIEW OF SYSTEMS: CARDIOPULMONARY: No chest pain or shortness of breath. Gastrointestinal:No abdominal pain. No nausea or vomiting. No hematemesis, coffee-ground emesis. No rectal bleeding, or melena. GENITOURINARY: No dysuria or hematuria. MUSCULOSKELETAL: Reports normal range of motion., Joint pain. SKIN: No rashes. No jaundice. Lower extremity venous stasis, chronic wounds ENDOCRINE: No chills, fevers. No excessive weight gain or loss. No polydipsia or polyuria. PSYCHIATRIC: Unremarkable. NEUROLOGY: No change in mental status. Denies dizziness, headache. ENT: Vision unremarkable. CONSTITUTIONAL: No recent weight loss. No fever, chills, night sweats. Past Medical History Past Medical History: Atrial Fibrillation, Heart Failure, GERD/Reflux, Hypertension, Osteoarthritis (OA), Sleep Apnea/CPAP/BIPAP Additional Past Medical History / Comment(s): uses CPAP, fatty liver, current umbilical hernia, edema lower extremities History of Any Multi-Drug Resistant Organisms: None Reported Past Surgical History: Cardiac Ablation, Heart Catheterization, Hernia Repair, Pacemaker Additional Past Surgical History / Comment(s): EP studies, hernia repair as a baby Past Anesthesia/Blood Transfusion Reactions: No Reported Reaction Type of Cardiac Device: Permanent Pacemaker Device Placement Date:: 1996 original, upgraded 2016 Past Psychological History: No Psychological Hx Reported Smoking Status: Current some day smoker, Former smoker Past Alcohol Use History: None Reported Past Drug Use History: Marijuana Medications and Allergies Home Medications Medication Instructions Recorded Confirmed Type Losartan Potassium [Cozaar] 100 mg PO DAILY 01/15/22 05/02/24 History Bumetanide [BUMEX] 2 mg PO BID 01/19/24 05/02/24 History Fluticasone Nasal [place] [Flonase 1 spray EA NOSTRIL DAILY PRN 01/19/24 05/02/24 History Nasal [place]] HYDROcodone/APAP 10-325MG [[place] 1 tab PO Q6H 01/19/24 05/02/24 History 10-325] Potassium Chloride ER [K-Dur 10] 10 meq PO DAILY 01/19/24 05/02/24 History carvediloL [Coreg] 25 mg PO BID 01/19/24 05/02/24 History tadalafiL 5 mg PO DAILY 01/19/24 05/02/24 History Apixaban [Eliquis] 5 mg PO BID #60 tab 01/22/24 05/02/24 Rx Diclofenac Sodium [Voltaren] 75 mg PO BID 05/02/24 05/02/24 History Ferrous Sulfate [Iron (65 MG 325 mg PO MOWEFR 05/02/24 05/02/24 History Elemental)] Omeprazole 20 mg PO DAILY 05/02/24 05/02/24 History Allergies Allergy/AdvReac Type Severity Reaction Status Date / Time No Known Allergies Allergy Verified 05/02/24 17:16 Physical Exam Vitals: Vital Signs Temp Pulse Resp BP Pulse Ox 05/03/24 07:31 98.1 F 78 18 174/70 95 05/03/24 06:34 95 18 154/99 98 05/03/24 04:00 76 18 156/91 99 05/03/24 02:00 70 18 144/78 98 05/03/24 00:00 69 18 136/54 100 05/02/24 21:30 75 18 174/95 96 05/02/24 20:06 86 18 157/85 95 05/02/24 18:16 82 18 161/77 96 05/02/24 16:47 20 05/02/24 16:36 97.9 F 75 18 147/80 95 Intake and Output 05/02/24 05/03/24 05/03/24 22:59 06:59 14:59 Other: Weight 174.633 kg General appearance: The patient is alert, oriented, appears in no acute distress. Morbidly obese. HET: Head is normocephalic and atraumatic. Conjunctiva pink. Sclera anicteric. Neck: Supple without lymphadenopathy. Trachea midline. Heart: Regular. Lungs: Equal expansion, normal respiratory effort. Abdomen: Soft, nontender, nondistended. Skin: Lower extremity edema, venous stasis, legs wrapped with dressings. Extremities: Normal skin color and turgor. No pedal edema. Neurological: No focal deficits. Alert and oriented x3. Results CBC & Chem 7: 05/03/24 03:23 05/03/24 03:23 Labs: Abnormal Lab Results - Last 24 Hours (Table) 05/02/24 05/02/24 05/03/24 Range/Units 19:12 19:12 03:23 RBC 2.61 L 2.62 L (4.30-5.90) m/uL Hgb 7.6 L 7.8 L (13.0-17.5) gm/dL Hct 25.7 L 25.8 L (39.0-53.0) % MCHC 29.8 L 30.2 L (31.0-37.0) g/dL RDW 16.9 H 17.1 H (11.5-15.5) % Lymphocytes # 0.5 L 0.6 L (1.0-4.8) k/uL BUN 48 H (9-20) mg/dL Creatinine 1.65 H (0.66-1.25) mg/dL Glucose 107 H (74-99) mg/dL 05/03/24 Range/Units 03:23 RBC (4.30-5.90) m/uL Hgb (13.0-17.5) gm/dL Hct (39.0-53.0) % MCHC (31.0-37.0) g/dL RDW (11.5-15.5) % Lymphocytes # (1.0-4.8) k/uL BUN 47 H (9-20) mg/dL Creatinine 1.56 H (0.66-1.25) mg/dL Glucose 105 H (74-99) mg/dL Assessment and Plan (1) Chronic anemia Narrative/Plan: 63-year-old male known to gastroenterology for chronic iron deficiency anemia with multiple endoscopic workup with no evidence of GI bleed and prior endoscopies. He has no complaints of any black stool or blood in his stool, abd ominal pain, nausea or vomiting. He is on anticoagulation for atrial fibrillation and supposed to be on oral iron however does not tolerate it and only takes it about 3 days a week. Unclear etiology of iron deficiency anemia, GI bleed has been ruled out in the past. Though being on anticoagulation certainly patient could have a small AVM with intermittent bleeding. Patient has not seen periodontal assistant in the past. Consider hematology referral. Hold anticoagulation for now. No plans on endoscopic evaluation. Current Visit: Yes Status: Acute Code(s): D64.9 - ANEMIA, UNSPECIFIED SNOMED Code(s): 220354779 (2) Atrial fibrillation Current Visit: Yes Status: Acute Code(s): I48.91 - UNSPECIFIED ATRIAL FIBRILLATION SNOMED Code(s): 24981786 (3) Chronic wound of extremity Current Visit: Yes Status: Acute Code(s): WED7726 - SNOMED Code(s): 9 7976154909119 (4) Morbidly obese Current Visit: No Status: Acute Code(s): E66.01 - MORBID (SEVERE) OBESITY DUE TO EXCESS CALORIES SNOMED Code(s): 584218321 Plan: 1. Continue symptomatic and supportive care 2. Iron studies ordered 3. Daily CBC, transfuse for hemoglobin less than 7 4. Patient has had recent endoscopic evaluation within the last year, no plans on endoscopic evaluation 5. Consider hematology consultation for iron deficiency anemia 6. Patiirent is not tolerating home oral iron, may need to consider parental infusions. 7. Protonix 40 mg daily for GI prophylaxis 8. Parental iron ordered 9. Consider holding anticoagulation. Patient supposed to follow-up with rotary shear cutter for possible watchman's procedure thank you for this consultation, we will continue to follow. Dr. Carlos Cee I agree with the dictator's note, documented as a scribe by Laura Gastelum.
[2024-05-03 11:53] LABS: % Iron Saturation 7.4 (15.00-50.00)
[2024-05-03 11:54] LABS: Ferritin 25.7 ng/mL (22.0-322.0)
--- NOTE | 2024-05-03 14:21 | P.HPIM ---
History of Present Illness H&P Date: 05/03/24 History of present illness; patient is a 63-year-old gentleman past medical history significant for atrial fibrillation on Eliquis, iron deficiency anemia, who presented to ER for abnormal labs. Patient stated that he had blood work done outpatient where he was found to have low hemoglobin levels. Patient has been noticing blood in his stools. Patient multiple endoscopies and capsule studies done with the most recent one being in January of this year. EGD done at that time showed gastritis and hiatal hernia. Small capsule endoscopy showed no old blood seen no active bleeding. Patient has been complaining of increasing shortness of breath and lethargic for the last few days, that is why the blood work was ordered. Patient has been noticing blood in his stools which he states is normal for him. Patient is supposed to follow-up outpatient with cardiology to discuss regarding Watchman device. Because of low hemoglobin, patient went to the ER Initial lab work done in the ER showed WBC 4, hemoglobin 7.6, platelet count 196, sodium 139, potassium 4.2, BUN 40, creatinine 1.65, glucose 107 bilirubin 1.2, Renal ultrasound done showed no evidence for obstructive uropathy or renal calculus Patient admitted to internal medicine service REVIEW OF SYSTEMS: CONSTITUTIONAL: No fever, no malaise, no fatigue. HEENT: No recent visual problems or hearing problems. Denied any sore throat. CARDIOVASCULAR: No chest pain, orthopnea, PND, no palpitations, no syncope. PULMONARY: No shortness of breath, no cough, no hemoptysis. GASTROINTESTINAL: No diarrhea, no nausea, no vomiting, no abdominal pain. Complaining of blood in the stools NEUROLOGICAL: No headaches, no weakness, no numbness. HEMATOLOGICAL: Denies any bleeding or petechiae. GENITOURINARY: Denies any burning micturition, frequency, or urgency. MUSCULOSKELETAL/RHEUMATOLOGICAL: Denies any joint pain, swelling, or any muscle pain. ENDOCRINE: Denies any polyuria or polydipsia. The rest of the 14-point review of systems is negative. PHYSICAL EXAMINATION: GENERAL: The patient is alert and oriented x3, not in any acute distress. Well developed, well nourished. HEENT: Pupils are round and equally reacting to light. EOMI. No scleral icterus. No conjunctival pallor. Normocephalic, atraumatic. No pharyngeal erythema. No thyromegaly. CARDIOVASCULAR: S1 and S2 present. No murmurs, rubs, or gallops. PULMONARY: Chest is clear to auscultation, no wheezing or crackles. ABDOMEN: Soft, nontender, nondistended, normoactive bowel sounds. No palpable organomegaly. MUSCULOSKELETAL: No joint swelling or deformity. EXTREMITIES: No cyanosis, clubbing, or pedal edema. NEUROLOGICAL: Gross neurological examination did not reveal any focal deficits. SKIN: No rashes. Assessment and plan Blood in stools Iron deficiency anemia Acute on chronic anemia Atrial fibrillation Monitor vital signs Monitor CBC Monitor CMP Hold Eliquis Start Protonix Start iron supplementation Resume home meds Consult GI Consult hematology oncology Labs and medication were reviewed.. Continue same treatment. Continue with symptomatic treatment. Resume home medication. Monitor labs and vitals. DVT and GI prophylaxis. Further recommendations as per clinical course of the patient Dictation was produced using [employer] dictation software. please excuse any grammatical, word or spelling errors. Past Medical History Past Medical History: Atrial Fibrillation, Heart Failure, GERD/Reflux, Hypertension, Osteoarthritis (OA), Sleep Apnea/CPAP/BIPAP Additional Past Medical History / Comment(s): uses CPAP, fatty liver, current umbilical hernia, edema lower extremities History of Any Multi-Drug Resistant Organisms: None Reported Past Surgical History: Cardiac Ablation, Heart Catheterization, Hernia Repair, Pacemaker Additional Past Surgical History / Comment(s): EP studies, hernia repair as a baby Past Anesthesia/Blood Transfusion Reactions: No Reported Reaction Type of Cardiac Device: Permanent Pacemaker Device Placement Date:: 1996 original, upgraded 2017 Past Psychological History: No Psychological Hx Reported Smoking Status: Current some day smoker, Former smoker Past Alcohol Use History: None Reported Past Drug Use History: Marijuana Medications and Allergies Home Medications Medication Instructions Recorded Confirmed Type Losartan Potassium [Cozaar] 100 mg PO DAILY 01/15/22 05/02/24 History Bumetanide [BUMEX] 2 mg PO BID 01/19/24 05/02/24 History Fluticasone Nasal [place] [Flonase 1 spray EA NOSTRIL DAILY PRN 01/19/24 05/02/24 History Nasal [place]] HYDROcodone/APAP 10-325MG [[place] 1 tab PO Q6H 01/19/24 05/02/24 History 10-325] Potassium Chloride ER [K-Dur 10] 10 meq PO DAILY 01/19/24 05/02/24 History carvediloL [Coreg] 25 mg PO BID 01/19/24 05/02/24 History tadalafiL 5 mg PO DAILY 01/19/24 05/02/24 History Apixaban [Eliquis] 5 mg PO BID #60 tab 01/22/24 05/02/24 Rx Diclofenac Sodium [Voltaren] 75 mg PO BID 05/02/24 05/02/24 History Ferrous Sulfate [Iron (65 MG 325 mg PO MOWEFR 05/02/24 05/02/24 History Elemental)] Omeprazole 20 mg PO DAILY 05/02/24 05/02/24 History Allergies Allergy/AdvReac Type Severity Reaction Status Date / Time No Known Allergies Allergy Verified 05/02/24 17:16 Physical Exam Vitals: Vital Signs Temp Pulse Resp BP Pulse Ox 05/03/24 11:55 98 05/03/24 10:25 69 16 116/59 94 L 05/03/24 08:55 71 16 142/90 95 05/03/24 07:31 98.1 F 78 18 174/70 95 05/03/24 06:34 95 18 154/99 98 05/03/24 04:00 76 18 156/91 99 05/03/24 02:00 70 18 144/78 98 05/03/24 00:00 69 18 136/54 100 05/02/24 21:30 75 18 174/95 96 05/02/24 20:06 86 18 157/85 95 05/02/24 18:16 82 18 161/77 96 05/02/24 16:47 20 05/02/24 16:36 97.9 F 75 18 147/80 95 Intake and Output 05/02/24 05/03/24 05/03/24 22:59 06:59 14:59 Other: Weight 174.633 kg Results CBC & Chem 7: 05/03/24 03:23 05/03/24 03:23 Labs: Abnormal Lab Results - Last 24 Hours (Table) 05/02/24 05/02/24 05/03/24 Range/Units 19:12 19:12 03:23 RBC 2.61 L 2.62 L (4.30-5.90) m/uL Hgb 7.6 L 7.8 L (13.0-17.5) gm/dL Hct 25.7 L 25.8 L (39.0-53.0) % MCHC 29.8 L 30.2 L (31.0-37.0) g/dL RDW 16.9 H 17.1 H (11.5-15.5) % Lymphocytes # 0.5 L 0.6 L (1.0-4.8) k/uL BUN 48 H (9-20) mg/dL Creatinine 1.65 H (0.66-1.25) mg/dL Glucose 107 H (74-99) mg/dL Iron (65-175) UG/DL TIBC (228-460) UG/DL % Saturation (15.00-50.00) Transferrin (204.0-354.0) mg/dL 05/03/24 05/03/24 Range/Units 03:23 03:23 RBC (4.30-5.90) m/uL Hgb (13.0-17.5) gm/dL Hct (39.0-53.0) % MCHC (31.0-37.0) g/dL RDW (11.5-15.5) % Lymphocytes # (1.0-4.8) k/uL BUN 47 H (9-20) mg/dL Creatinine 1.56 H (0.66-1.25) mg/dL Glucose 105 H (74-99) mg/dL Iron 37 L (65-175) UG/DL TIBC 500 H (228-460) UG/DL % Saturation 7.40 L (15.00-50.00) Transferrin 357.0 H (204.0-354.0) mg/dL
[2024-05-03] MEDS: HYDROCORTISONE SUPPOSITORY 25 MG SUPP RECTAL STA (14:50)
[2024-05-03] MEDS: SODIUM FERRIC GLUCONAT-SUCROSE 125 MG in SODIUM CHLORIDE 0.9% 100 ML IVPB ONE (15:04)
[2024-05-04 07:17] LABS: ALT 27 U/L (4-49); AST 62 U/L (17-59); African American GFR (CKD) 59 (>60 ml/min/1.73 sqM); Albumin 3.6 g/dL (3.5-5.0); Albumin/Globulin Ratio 1.2; Alkaline Phosphatase 63 U/L (38-126); Anion Gap 5 mmol/L; Blood Urea Nitrogen 38 mg/dL (9-20); Calcium 8.7 mg/dL (8.4-10.2); Carbon Dioxide 30 mmol/L (22-30); Chloride 106 mmol/L (98-107); Globulin 3.1 g/dL; Glucose 93 mg/dL (74-99); Non-African American GFR(CKD) 51 (>60 ml/min/1.73 sqM); Potassium 4.2 mmol/L (3.5-5.1); Sodium 141 mmol/L (137-145); Total Bilirubin 1.1 mg/dL (0.2-1.3); Total Protein 6.7 g/dL (6.3-8.2)
[2024-05-04 07:55] LABS: Anisocytosis Slight; HCT 27.6 % (39.0-53.0); HGB 8.2 gm/dL (13.0-17.5); Hypochromasia Marked; MCH 29.2 pg (25.0-35.0); MCHC 29.5 g/dL (31.0-37.0); MCV 98.9 fL (80.0-100.0); Macrocytosis Slight; Mean Platelet Volume 9.8; Platelet Count 191 k/uL (150-450); Poikilocytosis Slight; RBC 2.79 m/uL (4.30-5.90); RDW 17.1 % (11.5-15.5); WBC 4.3 k/uL (3.8-10.6)
[2024-05-04] MEDS: HYDROCORTISONE SUPPOSITORY 25 MG SUPP RECTAL SCH (08:31)
[2024-05-04 08:43] LABS: Eosinophils # (M) 0.09 k/uL (0-0.7); Lymphocytes # (M) 0.82 k/uL (1.0-4.8); Monocytes # (M) 0.73 k/uL (0-1.0); Neutrophils # (M) 2.67 k/uL (1.3-7.7); Neutrophils % (M) 62 %; Nucleated Red Blood Cells 0 /100 WBC (0-0); Total Cells Counted 100
[2024-05-04] MEDS: SODIUM FERRIC GLUCONAT-SUCROSE 125 MG in SODIUM CHLORIDE 0.9% 100 ML IVPB SCH (10:09)
--- NOTE | 2024-05-04 10:13 | P.PN ---
Subjective Progress Note Date: 05/04/24 Principal diagnosis: Anemia This is a pleasant 63-year-old male with a history of chronic iron deficiency anemia who also has hypertension, chronic lower extremity wounds and atrial fibrillation on Eliquis who was sent into the emergency department for low hemoglobin. Patient has had multiple endoscopies in the last couple years. Most recently he had upper endoscopy and small bowel capsule study done in January of this year. Upper endoscopy with findings of mild gastritis, hiatal hernia. Small bowel capsule was normal with no old blood seen or active bleeding and no other findings to explain iron deficiency anemia. Prior to that in November 2022 he had an upper endoscopy and lower endoscopy. Upper endoscopy with findings of duodenal polyp status post polypectomy and diffuse mild gastritis. Colonoscopy status post polypectomies and sigmoid diverticulosis. Patient supposed be taking iron daily but he states that it causes him to either have constipation or diarrhea so he only takes it about 3 days a week. He denies any follow-up with any [employer] operator. 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 He denies any blood in his stool or black stool, no abdominal pain, nausea or vomiting. 05/04/2024 Patient seen and examined today as a follow-up. He received 1 dose of parenteral iron yesterday and is scheduled to receive another 1 today. Hemoglobin 8.2. Denies any blood in his stool, abdominal pain, nausea or vomiting. Objective - Vital Signs Vital signs: Vital Signs Temp 98.5 F 05/04/24 07:01 Pulse 89 05/04/24 07:01 Resp 16 05/04/24 07:01 BP 137/83 05/04/24 07:01 Pulse Ox 99 05/04/24 07:01 FiO2 Intake & Output 05/03/24 05/04/24 05/04/24 18:59 06:59 18:59 Output Total 900 Balance -900 Weight 174.633 kg Output: Urine 900 Other: Voiding Method Urinal - Exam General appearance: The patient is alert, oriented, appears in no acute distress. Morbidly obese. HET: Head is normocephalic and atraumatic. Conjunctiva pink. Sclera anicteric. Neck: Supple without lymphadenopathy. Abdomen: Soft, nontender, nondistended with bowel sounds. No guarding or rigidity. Extremities: Normal skin color and turgor. No pedal edema Skin: No rashes, no jaundice Neurological: No focal deficits. Alert and oriented. - Labs CBC & Chem 7: 05/04/24 05:57 05/04/24 05:57 Labs: Abnormal Lab Results - Last 24 Hours (Table) 05/03/24 05/04/24 05/04/24 Range/Units 03:23 05:57 05:57 RBC 2.79 L (4.30-5.90) m/uL Hgb 8.2 L (13.0-17.5) gm/dL Hct 27.6 L (39.0-53.0) % MCHC 29.5 L (31.0-37.0) g/dL RDW 17.1 H (11.5-15.5) % Lymphocytes # (Manual) 0.82 L (1.0-4.8) k/uL BUN 38 H (9-20) mg/dL Creatinine 1.47 H (0.66-1.25) mg/dL Iron 37 L (65-175) UG/DL TIBC 500 H (228-460) UG/DL % Saturation 7.40 L (15.00-50.00) Transferrin 357.0 H (204.0-354.0) mg/dL AST 62 H (17-59) U/L Assessment and Plan (1) Chronic anemia Narrative/Plan: 63-year-old male known to gastroenterology for chronic iron deficiency anemia with multiple endoscopic workup with no evidence of GI bleed and prior endoscopies. He has no complaints of any black stool or blood in his stool, abdominal pain, nausea or vomiting. He is on anticoagulation for atrial fibrillation and supposed to be on oral iron however does not tolerate it and only takes it about 3 days a week. Unclear etiology of iron deficiency anemia, GI bleed has been ruled out in the past. Though being on anticoagulation certainly patient could have a small AVM with intermittent bleeding. Patient has not seen [employer] operator in the past. Consider hematology referral. Hold anticoagulation for now. No plans on endoscopic evaluation. Current Visit: Yes Status: Acute Code(s): D64.9 - ANEMIA, UNSPECIFIED SNOMED Code(s): 425275830 (2) Atrial fibrillation Current Visit: Yes Status: Acute Code(s): I48.91 - UNSPECIFIED ATRIAL FIBR ILLATION SNOMED Code(s): 02578476 (3) Chronic wound of extremity Current Visit: Yes Status: Acute Code(s): GTV0636 - SNOMED Code(s): 01537248177048 (4) Morbidly obese Current Visit: No Status: Acute Code(s): E66.01 - MORBID (SEVERE) OBESITY DUE TO EXCESS CALORIES SNOMED Code(s): 088163926 (5) Hemorrhoids Narrative/Plan: Continue with steroid suppositories Current Visit: Yes Status: Acute Code(s): K64.9 - UNSPECIFIED HEMORRHOIDS SNOMED Code(s): 66599370 Plan: 1. Continue symptomatic and supportive care 2. Continue with steroid rectal suppositories 3. Continue with IV iron today 4. Hematology on consultation 5. No plans on endoscopic evaluation 6. Patient is cleared by gastroenterology for discharge Thank you for this consultation. Dr. Carlos Cee I agree with the dictator's note, documented as a scribe by Laura Gastelum.
[2024-05-04 12:17] VITALS: BP 142/84; RESP 20; TEMP 98.3
[2024-05-04 12:21] VITALS: PULSE 71
--- NOTE | 2024-05-04 23:58 | P.CONS ---
History of Present Illness - Reason for Consult Consult date: 05/04/24 anemia Requesting physician: Oleksandr Scott - Chief Complaint abnormal labs, low hgb - History of Present Illness Patient is a 63-year-old male with a history of chronic iron deficiency anemia, hypertension, chronic lower extremity wounds and atrial fibrillation anticoagulated with Eliquis. He was sent to the emergency department for low hemoglobin noted on outpt labs. Patient has had multiple endoscopies in the last couple years. Most recently he had upper endoscopy and small bowel capsule study done in January of this year. Upper endoscopy with findings of mild gastrit is, hiatal hernia. Small bowel capsule was normal with no old blood seen or active bleeding. In November 2022 he had an upper endoscopy and lower endoscopy. Upper endoscopy with findings of duodenal polyp status post polypectomy and diffuse mild gastritis. Colonoscopy status post polypectomies and sigmoid diverticulosis. Patient takes oral iron but due to GI issues and is only taking it about 3 days a week. He is currently prescribed Eliquis but due to persistent bleeding issues and anemia while on full dose he is only taking 1 pill daily, he is unsure if he is taking 2.5mg or 5mg dose, but EMR shows home medication is 5mg dose. He states he is following up with cardiology to consider Watchman procedure so he can come off of anticoagulation. Patient also takes PO diclofenac once daily for arthritis pain, and states if he doesn't take it he has difficulties ambulating due to pain. He denies any blood in his stool, melena, abdominal pain, and nausea or vomiting. He states he has had anemia for the last 1 year, and had to receive blood transfusion in January. Denies any anti-platelet therapy in the last 1 year. He was switched to Eliquis during hospitalization in January, after being on coumadin for approx 8 years. On admission CBC showed hemoglobin 7.6, MCV 98.3, MCH 29.3. Platelets 196,000, WBC 4.0. Today CBC showing hemoglobin 8.2. Iron studies revealed iron saturation 7.4%, ferritin 25.7. Vitamin B12 430, folate 13.3. IV iron ordered. Bilirubin 1.1, LFTs and lipase WNL. Creatinine 1.47, GFR 51. Review of Systems 10 point ROS is negative except as stated in the HPI Past Medical History Past Medical History: Atrial Fibrillation, Heart Failure, GERD/Reflux, Hypertension, Osteoarthritis (OA), Sleep Apnea/CPAP/BIPAP Additional Past Medical History / Comment(s): uses CPAP, fatty liver, current umbilical hernia, edema lower extremities History of Any Multi-Drug Resistant Organisms: None Reported Past Surgical History: Cardiac Ablation, Heart Catheterization, Hernia Repair, Pacemaker Additional Past Surgical History / Comment(s): EP studies, hernia repair as a baby Past Anesthesia/Blood Transfusion Reactions: No Reported Reaction Type of Cardiac Device: Permanent Pacemaker Device Placement Date:: 1996 original, upgraded 2016 Past Psychological History: No Psychological Hx Reported Smoking Status: Current some day smoker, Former smoker Past Alcohol Use History: None Reported Additional Past Alcohol Use History / Comment(s): quit smoking 1991, smoked 6-8 yrs, 1/2-1ppd, 3-6 vodka mixed drinks daily Past Drug Use History: Marijuana Additional Drug Use History / Comment(s): . Medications and Allergies Home Medications Medication Instructions Recorded Confirmed Type Losartan Potassium [Cozaar] 100 mg PO DAILY 01/15/22 05/02/24 History Bumetanide [BUMEX] 2 mg PO BID 01/19/24 05/02/24 History Fluticasone Nasal [place] [Flonase 1 spray EA NOSTRIL DAILY PRN 01/19/24 05/02/24 History Nasal [place]] HYDROcodone/APAP 10-325MG [[place] 1 tab PO Q6H 01/19/24 05/02/24 History 10-325] Potassium Chloride ER [K-Dur 10] 10 meq PO DAILY 01/19/24 05/02/24 History carvediloL [Coreg] 25 mg PO BID 01/19/24 05/02/24 History tadalafiL 5 mg PO DAILY 01/19/24 05/02/24 History Apixaban [Eliquis] 5 mg PO BID #60 tab 01/22/24 05/02/24 Rx Diclofenac Sodium [Voltaren] 75 mg PO BID 05/02/24 05/02/24 History Ferrous Sulfate [Iron (65 MG 325 mg PO MOWEFR 05/02/24 05/02/24 History Elemental)] Omeprazole 20 mg PO DAILY 05/02/24 05/02/24 History Hydrocortisone Suppository 25 mg RECTAL DAILY #30 suppositor 05/04/24 Rx [Anusol-Hc] Allergies Allergy/AdvReac Type Severity Reaction Status Date / Time No Known Allergies Allergy Verified 05/02/24 17:16 Physical Exam Vitals: Vital Signs Temp Pulse Pulse Resp BP BP Pulse Ox 05/04/24 07:01 98.5 F 89 16 137/83 99 05/04/24 00:00 98.6 F 70 16 125/75 97 05/03/24 19:00 98.9 F 70 16 126/75 100 05/03/24 15:57 98.4 F 86 16 131/78 99 05/03/24 15:06 98.1 F 70 16 145/63 99 Intake and Output 05/03/24 05/04/24 05/04/24 22:59 06:59 14:59 Output Total 300 600 Balance -300 -600 Output: Urine 300 600 Other: Voiding Method Urinal Urinal Urinal Weight 174.633 kg - Constitutional General appearance: no acute distress, obese - EENT Eyes: anicteric sclerae, EOMI ENT: hearing grossly normal - Respiratory breathing is even and unlabored - Cardiovascular well perfused - Gastrointestinal General gastrointestinal: no tenderness - Integumentary chronic BLE wounds, legs wrapped in bandages Integumentary: no cyanotic - Neurologic grossly intact - Musculoskeletal Musculoskeletal: strength equal bilaterally - Psychiatric Psychiatric: A&O x's 3 Results CBC & Chem 7: 05/04/24 05:57 05/04/24 05:57 Labs: Abnormal Lab Results - Last 24 Hours (Table) 05/04/24 05/04/24 Range/Units 05:57 05:57 RBC 2.79 L (4.30-5.90) m/uL Hgb 8.2 L (13.0-17.5) gm/dL Hct 27.6 L (39.0-53.0) % MCHC 29.5 L (31.0-37.0) g/dL RDW 17.1 H (11.5-15.5) % Lymphocytes # (Manual) 0.82 L (1.0-4.8) k/uL BUN 38 H (9-20) mg/dL Creatinine 1.47 H (0.66-1.25) mg/dL AST 62 H (17-59) U/L Assessment and Plan (1) Iron deficiency anemia Status: Acute Priority: High Code(s): D50.9 - IRON DEFICIENCY ANEMIA, UNSPECIFIED SNOMED Code(s): 08564775 Plan: Iron deficiency anemia: Presented for abnormal labs, outpt labs showed low hgb. History of LUIS A. Patient had upper endoscopy and small bowel capsule study done in January 2024 which showed no acute GI bleed. In November 2022 he had an upper endoscopy and lower endoscopy which were also negative for acute GI bleed. He is currently prescribed Eliquis for atrial fibrillation but due to persistent bleeding issues and anemia while on treatment dose he is currently only taking 1 pill daily; he is unsure if he is taking 2.5mg or 5mg dose, but EMR shows home medication is 5mg dose. He is also taking PO diclofenac once daily for arthritic pain. Denies any blood in his stool, and melena. Upon review of EMR, anemia was oted in 2021, and during last two admissions hgb has been in 7-8 range. -On admission CBC showed hemoglobin 7.6, MCV 98.3, MCH 29.3. Platelets 196,000, WBC 4.0. Today CBC showing hemoglobin 8.2. -Iron studies revealed iron saturation 7.4%, ferritin 25.7. Vitamin B12 430, folate 13.3. IV iron ordered. Will obtain MMA -GI consulted, no plan for endoscopic evaluation at this time -Currently diclofenac ordered BID, will change to once daily. Discussed with pt that frequent use of NSAIDs increase risk of GI bleed, and to try to limit these medications -Will plan for feraheme infusions outpt x 3, and subsequent clinic f/u to establish care and recheck iron studies -Continue close f/u with cardiology for anticoagulation management and possible watchman procedure Doctor attests: I performed history and physical examination of this patient, developed impression and plan of care. Discussed with dictator. I agree with dictators note, documented as a scribe.
[2024-05-05] MEDS ORDERED: ETODOLAC 400 MG TAB PO SCH (09:00)
== END 2024-05-04 15:27 | disposition home or self-care (01) ==
LOC: EC 16:33 → INTOOBSV 17:04 → 3SCARD 17:04 → 5NMEDONC 05-03 02:21
PROVIDERS: ADMIT Hospitalist; ATTEND Hospitalist
DX: K92.1 Melena (principal); D50.9 Iron deficiency anemia, unspecified; K64.9 Unspecified hemorrhoids; I48.91 Unspecified atrial fibrillation; I11.0 Hypertensive heart disease with heart failure; I50.9 Heart failure, unspecified; K21.9 Gastro-esophageal reflux disease without esophagitis; G47.30 Sleep apnea, unspecified; E66.01 Morbid (severe) obesity due to excess calories; Z68.43 Body mass index [BMI] 50.0-59.9, adult; Z87.891 Personal history of nicotine dependence; Z95.0 Presence of cardiac pacemaker; Z79.01 Long term (current) use of anticoagulants; Z79.899 Other long term (current) drug therapy
CPT/HCPCS: 96376; 96365; 96366 ×2; 96375 ×2; 99285; 94760; 83921; 80053 ×3; 82607; 82728; 82746; 83540; 83550; 83690; 83735 ×2; 84100 ×2; 85025 ×3; 76770; G0378 ×3; J2916 ×2; J7168; J2470 ×2